=== PATIENT | male | born 1970 | race American Indian/Alaskan Native ===

== ENCOUNTER 2016-09-16 20:27 | Observation (INO) | payer MEDICAID ==
--- NOTE | 2016-09-16 21:06 | ED PDOC ---
HPI: Psych/Substance Abuse Time Seen by Provider: 09/16/16 21:02 Chief Complaint (Nursing): Substance Abuse Chief Complaint (Provider): substance abuse History Per: Patient, EMS Additional Complaint(s): 42-year-old male presents to emergency department via police and EMS. Patient was found publicly intoxicated. Bystanders contacted police due to witnessing bizarre behavior and patient was brought here. Patient admits to drinking alcohol and doing PCP. Upon arrival to ED patient is making inappropriate sexual gestures toward ED staff and is spitting in triage. Past Medical History Reviewed: Historical Data, Nursing Documentation, Vital Signs Vital Signs: Last Vital Signs Temp 100.6 F H 09/16/16 20:47 Pulse 140 H 09/16/16 20:47 Resp 20 09/16/16 20:47 BP 133/75 09/16/16 20:47 Pulse Ox 100 09/16/16 20:47 - Medical History PMH: Fractures (Mandible & foot), HTN, Seizures - Surgical History Surgical History: Appendectomy - Family History Family History: States: No Known Family Hx - Living Arrangements Living Arrangements: Other (unknown) - Social History Current smoker - smoking cessation education provided: Yes Alcohol: Social Drugs: Other (PCP) - Home Medications Home Medications: Ambulatory Orders Medication Instructions Recorded Lisinopril/Hydrochlorothiazide 1 tab PO DAILY 11/02/15 [Zestoretic 20-25 mg Tablet] - Allergies Allergies/Adverse Reactions: Allergies Allergy/AdvReac Type Severity Reaction Status Date / Time No Known Allergies Allergy Verified 02/13/16 12:33 Review of Systems ROS Statement: Except As Marked, All Systems Reviewed And Found Negative Psych: Positive for: Other (substance abuse) Physical Exam - Reviewed Nursing Documentation Reviewed: Yes Vital Signs Reviewed: Yes - Physical Exam Appears: Positive for: Well, Non-toxic, No Acute Distress Skin: Negative for: Rash Cardiovascular/Chest: Positive for: Regular Rate, Rhythm Respiratory: Positive for: Normal Breath Sounds Neurologic/Psych: Positive for: Alert, Oriented, Other (combative, agitated) - Laboratory Results Result Diagrams: 09/16/16 22:46 09/16/16 22:46 - ECG O2 Sat by Pulse Oximetry: 100 Pulse Ox Interpretation: Normal Medical Decision Making Medical Decision Makin45 year old male here for possible substance abuse and agitation Plan: Patient arrives acutely agitated, combative and intoxicated upon arrival. He was placed on one-to-one observation and placed in 4 point restraints for his safety and safety of ED staff. Admit to ED observation. CBC CMP BAL UDS EKG ED OBSERVATION Date of observation admission: 09/16/16 Time of observation admission: 20:50 - Observation admission statement Patient is being placed in observation because:: Agitation, substance abuse - Goals of Observation Goals of observation are:: Monitor patient will acutely intoxicated and agitated. Monitor vital signs and monitor for airway compromise, pending sobriety. - Progress Note Progress Note: 09/16/16 21:30 Patient started to calm down somewhat, reassurance will remove briefly however upon removal of her strengths patient was noted to become acutely agitated and started to threaten staff again. He was put back in 4 point restraints and medicated with 2 mg IM Ativan and 5 mg IM Haldol. 09/16/16 22:40 Patient is asleep, vital signs are stable, restraints were removed, he will continue to be monitored under one-to-one bedside observation. 09/16/16 23:46 Patient is asleep, arousable, will continue to monitor Disposition - Clinical Impression Clinical Impression: Substance abuse - Patient ED Disposition Is Patient to be Admitted: Transfer of Care Counseled Patient/Family Regarding: Diagnosis, Need For Followup - Disposition Disposition: Transfer of Care Disposition Time: 23:55 Condition: FAIR Patient Signed Over To: Diya Maxwell Handoff Comments: Case was signed out pending diagnostic testing results, sobriety and final disposition
[2016-09-16 22:49] LABS: BASO # 0.1 K/uL (0.0-0.2); BASO % 0.7 % (0.0-2.0); EOS % 0.4 % (0.0-4.0); HEMOGLOBIN 11.6 g/dL (12.0-18.0); LYMPH % 9.3 % (20.0-40.0); MEAN CELL VOLUME 95.8 fl (80.0-94.0); MEAN CORPUSCULAR HEMOGLOBIN 31.6 pg (27.0-31.0); MEAN PLATELET VOLUME 7.9 fl (7.2-11.7); MONO # 0.4 K/uL (0.0-0.8); MONO % 3.7 % (0.0-10.0); NEUT # 8.8 K/uL (1.8-7.0); NEUT % 85.9 % (50.0-75.0); PLATELET COUNT 247 K/uL (130-400); RBC 3.66 Mil/uL (4.40-5.90); RED CELL DISTRIBUTION WIDTH 13.5 % (11.5-14.5); WHITE BLOOD COUNT 10.2 K/uL (4.8-10.8)
[2016-09-16 23:07] LABS: ALB/GLOB RATIO 1.5 (1.0-2.1); ALBUMIN 4.7 g/dL (3.5-5.0); CALCIUM 9.7 mg/dL (8.4-10.2)
[2016-09-16 23:58] VITALS: RESP 16
[2016-09-17 00:07] LABS: LYMPHOCYTE 12 % (20-50); METAMYELOCYTE 1 % (0-0); MONOCYTE 1 % (0-10); MYELOCYTE 1 % (0-0); NEUTROPHIL 85 % (42-75); PLATELET ESTIMATE NORMAL (NORMAL); TOTAL CELLS COUNTED 100
--- NOTE | 2016-09-17 05:16 | ED PDOC ---
- Laboratory Results Result Diagrams: 09/16/16 22:46 09/16/16 22:46 - ECG O2 Sat by Pulse Oximetry: 100 - Progress ED Course And Treament: Case endorsed to creative services writer from Sandhya KRISHNA pending clinical sobriety 2:00 patient sleeping, no distress 4:00 Patient sleeping, no distress 5:30 patient awake, alert, oriented x3; ambulating steady gait. Stable for discharge Disposition - Clinical Impression Clinical Impression: Substance abuse - POA Present On Arrival: None - Disposition Disposition: Routine/Home Disposition Time: 05:30 Condition: STABLE
[2016-09-17 05:36] VITALS: BP 150/95; PULSE 78; TEMP 98.2
[2016-09-17 05:38] VITALS: O2SAT 100
--- NOTE | 2016-09-17 07:26 | CARD ---
APPROVED REPORT EKG Measurement Heart [id number] <Conclusion> Normal sinus rhythm Possible Left atrial enlargement Incomplete right bundle branch block Left ventricular hypertrophy Prolonged QT Abnormal ECG
== END 2016-09-17 05:30 | disposition home or self-care (01) ==
LOC: H.ER 20:27 → H.EROBSV 22:22
PROVIDERS: ADMIT Emergency Medicine; ATTEND Emergency Medicine
DX: F19.10 Other psychoactive substance abuse, uncomplicated (principal); F10.129 Alcohol abuse with intoxication, unspecified; Y90.5 Blood alcohol level of 100-119 mg/100 ml; Z78.1 Physical restraint status; F17.210 Nicotine dependence, cigarettes, uncomplicated; I10 Essential (primary) hypertension; R56.9 Unspecified convulsions

== ENCOUNTER 2016-12-23 08:54 | Emergency (ER) | payer MEDICAID ==
[2016-12-23 09:08] VITALS: RESP 20; TEMP 97.5; O2SAT 99
[2016-12-23 09:36] VITALS: PULSE 83
[2016-12-23 09:58] LABS: BASO # 0.1 K/uL (0.0-0.2); BASO % 1.3 % (0.0-2.0); EOS % 0.6 % (0.0-4.0); LYMPH # 1.4 K/uL (1.0-4.3); LYMPH % 26.5 % (20.0-40.0); MEAN CELL VOLUME 96.2 fl (80.0-94.0); MEAN CORPUSCULAR HEMOGLOBIN 32.8 pg (27.0-31.0); MEAN CORPUSCULAR HGB CONC 34.1 g/dL (33.0-37.0); MEAN PLATELET VOLUME 8.5 fl (7.2-11.7); MONO # 0.5 K/uL (0.0-0.8); MONO % 8.9 % (0.0-10.0); NEUT # 3.4 K/uL (1.8-7.0); NEUT % 62.7 % (50.0-75.0); NRBC % 0.2 % (0.0-0.0); RED CELL DISTRIBUTION WIDTH 14.6 % (11.5-14.5); WHITE BLOOD COUNT 5.4 K/uL (4.8-10.8)
[2016-12-23 10:04] LABS: ALB/GLOB RATIO 1.5 (1.0-2.1); ALCOHOL SERUM 113 mg/dl (0-10); ALKALINE PHOSPHATASE 73 U/L (38-126); ALT/SGPT 38 U/L (21-72); AST/SGOT 70 U/L (17-59); BILIRUBIN,TOTAL 0.4 mg/dl (0.2-1.3); BLOOD UREA NITROGEN 16 mg/dl (9-20); CALCIUM 9.2 mg/dL (8.4-10.2); CARBON DIOXIDE 26 mmol/L (22-30); CHLORIDE 106 mmol/L (98-107); GFR AFRICAN-AMERICAN > 60; GLUCOSE,RANDOM 89 mg/dL (75-110); POTASSIUM 3.9 MMOL/L (3.6-5.0); SODIUM 143 mmol/l (132-148); TOTAL PROTEIN 7.4 G/DL (6.3-8.2)
--- NOTE | 2016-12-23 10:48 | RAD ---
HISTORY: COMPARISON: 11/02/2015. TECHNIQUE: Chest PA and lateral FINDINGS: LINES AND TUBES: None. LUNG AND PLEURA: The lungs are well inflated and clear. HEART AND MEDIASTINUM: The heart is not enlarged. The hilar and mediastinal contours are within normal limits. SKELETAL STRUCTURES: The bony structures are within normal limits for the patient's age. VISUALIZED UPPER ABDOMEN: Normal. OTHER FINDINGS: None. IMPRESSION: No active pulmonary disease.
[2016-12-23 11:04] LABS: RBC URINE 4 /hpf (0-3); URINE BACTERIA RARE (<OCC); URINE BILIRUBIN NEGATIVE (NEGATIVE); URINE BLOOD NEGATIVE (NEGATIVE); URINE COLOR YELLOW (YELLOW); URINE GLUCOSE (UA) NEG (Normal); URINE KETONE TRACE mg/dL (NEGATIVE); URINE LEUKOCYTE ESTERASE MOD Leu/uL (Negative); URINE PROTEIN 100 mg/dL (NEGATIVE); WBC URINE 15 /hpf (0-5)
--- NOTE | 2016-12-23 11:36 | ED PDOC ---
HPI: General Adult Time Seen by Provider: 12/23/16 09:07 Chief Complaint (Nursing): Cough, Cold, Congestion Chief Complaint (Provider): weakness, dizzy History Per: Patient History/Exam Limitations: no limitations Onset/Duration Of Symptoms: Days (1) Current Symptoms Are (Timing): Still Present Severity: Mild Additional Complaint(s): 46yo male presents c/o feeling weak and dizzy, did not take his BP medicine last few days. Denies chest pain, SOB, orthopnea or syncope. Admits to frequent alcohol. Past Medical History Reviewed: Historical Data, Nursing Documentation, Vital Signs Vital Signs: Last Vital Signs Temp 97.5 F L 12/23/16 09:07 Pulse 83 12/23/16 12:30 Resp 20 12/23/16 09:07 BP 121/82 12/23/16 13:33 Pulse Ox 99 12/23/16 11:38 - Medical History PMH: Bronchitis, Fractures (Mandible & foot), HTN, Seizures - Surgical History Surgical History: Appendectomy - Family History Family History: States: Unknown Family Hx, Hypertension - Social History Current smoker - smoking cessation education provided: Yes Alcohol: > 2 Drinks/Day - Home Medications Home Medications: Ambulatory Orders Medication Instructions Recorded Lisinopril/Hydrochlorothiazide 1 tab PO DAILY 11/02/15 [Zestoretic 20-25 mg Tablet] Ciprofloxacin [Cipro] 500 mg PO BID #14 tab 12/23/16 amLODIPine [Norvasc] 10 mg PO DAILY #10 tab 12/23/16 - Allergies Allergies/Adverse Reactions: Allergies Allergy/AdvReac Type Severity Reaction Status Date / Time No Known Allergies Allergy Verified 12/23/16 09:14 Review of Systems ROS Statement: Except As Marked, All Systems Reviewed And Found Negative Constitutional: Positive for: Weakness, Malaise. Negative for: Fever, Chills Cardiovascular: Negative for: Chest Pain, Orthopnea Respiratory: Negative for: Cough, Shortness of Breath Gastrointestinal: Negative for: Nausea, Vomiting, Abdominal Pain Genitourinary Male: Negative for: Dysuria, Frequency Musculoskeletal: Negative for: Neck Pain, Shoulder Pain, Arm Pain Skin: Negative for: Rash, Lesions Neurological: Positive for: Dizziness. Negative for: Weakness, Numbness, Change in Speech, Confusion, Seizures, Headache Physical Exam - Reviewed Nursing Documentation Reviewed: Yes Vital Signs Reviewed: Yes - Physical Exam Appears: Positive for: Well, Non-toxic, No Acute Distress Head Exam: Positive for: ATRAUMATIC, NORMAL INSPECTION, NORMOCEPHALIC Skin: Positive for: Normal Color, Warm, DRY Eye Exam: Positive for: Normal appearance, EOMI, PERRL, Other (muddy sclera) ENT: Positive for: Normal ENT Inspection Neck: Positive for: Normal, Painless ROM Cardiovascular/Chest: Positive for: Regular Rate, Rhythm Respiratory: Positive for: CNT, Normal Breath Sounds Gastrointestinal/Abdominal: Positive for: Bowel Sounds, Soft. Negative for: Tenderness, Guarding Back: Positive for: Normal Inspection Extremity: Positive for: Normal ROM. Negative for: Calf Tenderness, Deformity, Swelling Neurologic/Psych: Positive for: Alert, Oriented. Negative for: Motor/Sensory Deficits - Laboratory Results Result Diagrams: 12/23/16 09:45 12/23/16 09:45 - ECG O2 Sat by Pulse Oximetry: 99 Medical Decision Making Medical Decision Making: BP elevated, states takes norvasc 10mg daily, dose given and bloodwork will be obtained, CXR, cardiac monitoring bloods reviewed, +elevated ETOH CXR no acute infiltrate BP improved in the ED Discussed curtailing etoh intake. Pt refused IV rocephin, will DC w Cipro and order UCx. Risks discussed. Urology referral recommended given UTI in nondiabetic patient circumscised. Did not want STD testing. Disposition - Clinical Impression Clinical Impression: UTI (urinary tract infection), Hypertension, Alcohol abuse - Patient ED Disposition Is Patient to be Admitted: No Counseled Patient/Family Regarding: Studies Performed, Diagnosis, Need For Followup, Rx Given - Disposition Referrals: [facility] [Outside] Disposition Time: 11:45 Condition: STABLE Additional Instructions: Avoid drinking. See your doctor for further testing and treatment. Return to ER for any worse or new symptoms. See urologist for evaluation of UTI in a male. Prescriptions: amLODIPine [Norvasc] 10 mg PO DAILY #10 tab Ciprofloxacin [Cipro] 500 mg PO BID #14 tab Instructions: Urinary Tract Infection in Men (ED), At-Risk Alcohol Use (ED), Hypertension (ED) Forms: [facility] ED School/Work Excuse
[2016-12-23 13:34] VITALS: BP 121/82
--- NOTE | 2016-12-23 13:51 | CARD ---
APPROVED REPORT EKG Measurement Heart [id number] RI [id number] [id number] <Conclusion> Normal sinus rhythm Possible Left atrial enlargement Left axis deviation Incomplete right bundle branch block Left ventricular hypertrophy Nonspecific T wave abnormality Prolonged QT Abnormal ECG
== END 2016-12-23 13:33 | disposition home or self-care (01) ==
LOC: H.ER 08:54
DX: N39.0 Urinary tract infection, site not specified (principal); I10 Essential (primary) hypertension; F10.10 Alcohol abuse, uncomplicated

== ENCOUNTER 2017-01-17 05:36 | Emergency (ER) | payer MEDICAID ==
[2017-01-17] MEDS ORDERED: Nitroglycerin 2% Ointment Foilpak UD TOP STA (06:07)
[2017-01-17 06:15] VITALS: BP 163/115; PULSE 115; RESP 18; TEMP 98.5; O2SAT 99
--- NOTE | 2017-01-18 21:19 | CARD ---
APPROVED REPORT EKG Measurement Heart [id number] <Conclusion> Sinus tachycardia Possible Left atrial enlargement Incomplete right bundle branch block Left ventricular hypertrophy Abnormal ECG
== END 2017-01-17 06:14 | disposition left against medical advice (07) ==
LOC: H.ER 05:36
DX: Z02.89 Encounter for other administrative examinations (principal)

== ENCOUNTER 2017-01-24 07:26 | Emergency (ER) | payer MEDICAID ==
[2017-01-24 07:30] VITALS: PULSE 99; RESP 16; TEMP 99.2; O2SAT 100
[2017-01-24 08:45] VITALS: BP 236/136
--- NOTE | 2017-01-24 09:00 | ED PDOC ---
HPI: General Adult Time Seen by Provider: 01/24/17 07:41 Chief Complaint (Nursing): Medical Clearance Chief Complaint (Provider): Medical Clearance History Per: Patient, Other ([place] [employer]) History/Exam Limitations: no limitations Additional Complaint(s): Dagoberto Calzada is a 46 year old male with a history of hypertension that was brought to the ED by EMS after he was complaining of chest pain and difficulty breathing while at the police station. Patient is currently under police custody. He is refusing EKG in ED. Past Medical History Reviewed: Historical Data, Nursing Documentation, Vital Signs Vital Signs: Last Vital Signs Temp 99.2 F 01/24/17 07:28 Pulse 99 H 01/24/17 07:28 Resp 16 01/24/17 07:28 BP 236/136 H 01/24/17 08:44 Pulse Ox 100 01/24/17 07:28 - Medical History PMH: Bronchitis, Fractures (Mandible & foot), HTN, Seizures - Surgical History Surgical History: Appendectomy - Family History Family History: States: Unknown Family Hx, Hypertension - Home Medications Home Medications: Ambulatory Orders Medication Instructions Recorded Lisinopril/Hydrochlorothiazide 1 tab PO DAILY 11/02/15 [Zestoretic 20-25 mg Tablet] Ciprofloxacin [Cipro] 500 mg PO BID #14 tab 12/23/16 amLODIPine [Norvasc] 10 mg PO DAILY #10 tab 12/23/16 - Allergies Allergies/Adverse Reactions: Allergies Allergy/AdvReac Type Severity Reaction Status Date / Time No Known Allergies Allergy Verified 01/17/17 05:57 Review of Systems Review Of Systems: ROS cannot be obtained secondary to pt's inabilty to answer questions. (Patient denies symptoms) Physical Exam - Reviewed Nursing Documentation Reviewed: Yes Vital Signs Reviewed: Yes - Physical Exam Appears: Positive for: Non-toxic, No Acute Distress Head Exam: Positive for: ATRAUMATIC, NORMOCEPHALIC Skin: Positive for: Normal Color, Warm Eye Exam: Positive for: Normal appearance, EOMI, PERRL Neurologic/Psych: Positive for: Alert (Awake and alert. Patient is speaking full sentences.), Oriented (x3), Mood/Affect (Patient is aggressive and cursing in ED.), Gait (Steady). Negative for: Motor/Sensory Deficits - ECG O2 Sat by Pulse Oximetry: 100 (RA) Pulse Ox Interpretation: Normal Medical Decision Making Medical Decision Making: Impression: Medical Clearance Plan: * Patient is aggressive and cursing in ED. Unable to medically clear patient because he is refusing any treatment or evaluation. Patient is to be discharged with [place] [employer]. Scribe Attestation: Documented by Gabrielle Ward, acting as a scribe for Cathryn Low MD. Provider Scribe Attestation: All medical record entries made by the Scribe were at my direction and personally dictated by me. I have reviewed the chart and agree that the record accurately reflects my personal performance of the history, physical exam, medical decision making, and the department course for this patient. I have also personally directed, reviewed, and agree with the discharge instructions and disposition. Disposition - Clinical Impression Clinical Impression: Elevated blood pressure reading - Disposition Referrals: [facility] [place] [Outside] Disposition: Discharged/Transfer to Law Enforcement Disposition Time: 08:50 Condition: UNKNOWN Additional Instructions: PATIENT NOT MEDICALLY CLEARED, REFUSING EVALUATION. Instructions: Hypertension (ED) Forms: [employer] (Russian)
== END 2017-01-24 08:59 | disposition home or self-care (01) ==
LOC: H.ER 07:26
DX: Z02.89 Encounter for other administrative examinations (principal); I10 Essential (primary) hypertension

== ENCOUNTER 2017-01-29 04:07 | Emergency (ER) | payer MEDICAID ==
[2017-01-29 04:19] VITALS: PULSE 97; RESP 18; TEMP 97.9; O2SAT 97
[2017-01-29] MEDS ORDERED: Sodium Chloride 0.9% 1,000 ML IV STA (04:34)
--- NOTE | 2017-01-29 04:36 | ED PDOC ---
HPI: Abdomen Time Seen by Provider: 01/29/17 04:21 Chief Complaint (Nursing): Abdominal Pain Chief Complaint (Provider): abdominal pain History Per: Patient History/Exam Limitations: no limitations Onset/Duration Of Symptoms: Days (2 weeks), Waxing/Waning Current Symptoms Are (Timing): Still Present Location Of Pain/Discomfort: Epigastric Quality Of Discomfort: Burning Additional History Per: Patient Additional Complaint(s): 46 y/o male presents with epigastric abdominal pain x 2 weeks. Denies fever, nausea/vomiting, chest pain, shortness of breath, palpitations, changes in bowel movements, urinary symptoms, recent travel, sick contacts. Patient appears intoxicated, admits to drinking daily. Past Medical History Reviewed: Historical Data, Nursing Documentation, Vital Signs Vital Signs: Last Vital Signs Temp 97.9 F 01/29/17 04:16 Pulse 97 H 01/29/17 04:16 Resp 18 01/29/17 04:16 BP 146/106 H 01/29/17 04:16 Pulse Ox 97 01/29/17 04:37 - Medical History PMH: Bronchitis, Fractures (Mandible & foot), HTN, Seizures - Surgical History Surgical History: Appendectomy - Family History Family History: States: Unknown Family Hx, Hypertension - Home Medications Home Medications: Ambulatory Orders Medication Instructions Recorded Lisinopril/Hydrochlorothiazide 1 tab PO DAILY 11/02/15 [Zestoretic 20-25 mg Tablet] Ciprofloxacin [Cipro] 500 mg PO BID #14 tab 12/23/16 amLODIPine [Norvasc] 10 mg PO DAILY #10 tab 12/23/16 Famotidine [Pepcid] 20 mg PO BID #20 tab 01/29/17 - Allergies Allergies/Adverse Reactions: Allergies Allergy/AdvReac Type Severity Reaction Status Date / Time No Known Allergies Allergy Verified 01/17/17 05:57 Review of Systems ROS Statement: Except As Marked, All Systems Reviewed And Found Negative Gastrointestinal: Positive for: Abdominal Pain Physical Exam - Reviewed Nursing Documentation Reviewed: Yes Vital Signs Reviewed: Yes - Physical Exam Appears: Positive for: Well, Non-toxic, No Acute Distress Head Exam: Positive for: ATRAUMATIC, NORMAL INSPECTION, NORMOCEPHALIC Skin: Positive for: Normal Color Eye Exam: Positive for: Normal appearance ENT: Positive for: Normal ENT Inspection Cardiovascular/Chest: Positive for: Regular Rate, Rhythm Respiratory: Positive for: Normal Breath Sounds Gastrointestinal/Abdominal: Positive for: Normal Exam Back: Positive for: Normal Inspection Extremity: Positive for: Normal ROM Neurologic/Psych: Positive for: Alert, Oriented - Laboratory Results Result Diagrams: 01/29/17 04:45 01/29/17 04:45 - ECG O2 Sat by Pulse Oximetry: 97 - Progress ED Course And Treament: labs, IV fluids, IV pepcid On re-eval, patient states he is feeling better; tolerated food. Patient educated on findings, discharged with rx pepcid. Advised follow up PMD 2-3 days. Return to ED for worsening/concerning symptoms. Disposition - Clinical Impression Clinical Impression: Abdominal pain, Alcohol use - Patient ED Disposition Is Patient to be Admitted: No Counseled Patient/Family Regarding: Studies Performed, Diagnosis, Need For Followup, Rx Given - Disposition Disposition: Routine/Home Disposition Time: 05:54 Condition: IMPROVED Prescriptions: Famotidine [Pepcid] 20 mg PO BID #20 tab Instructions: Abdominal Pain (ED) Forms: [employer] (Telugu)
[2017-01-29 05:39] LABS: BASO % 0.7 % (0.0-2.0); EOS % 0.9 % (0.0-4.0); HEMATOCRIT 34.9 % (35.0-51.0); LYMPH # 1.5 K/uL (1.0-4.3); LYMPH % 34.4 % (20.0-40.0); MEAN CELL VOLUME 97.9 fl (80.0-94.0); MEAN CORPUSCULAR HEMOGLOBIN 32.4 pg (27.0-31.0); MEAN CORPUSCULAR HGB CONC 33.1 g/dL (33.0-37.0); MEAN PLATELET VOLUME 8.7 fl (7.2-11.7); MONO # 0.5 K/uL (0.0-0.8); MONO % 10.9 % (0.0-10.0); NEUT # 2.2 K/uL (1.8-7.0); NEUT % 53.1 % (50.0-75.0); NRBC % 0.1 % (0.0-0.0); RED CELL DISTRIBUTION WIDTH 14.6 % (11.5-14.5); WHITE BLOOD COUNT 4.2 K/uL (4.8-10.8)
[2017-01-29 05:52] LABS: ALB/GLOB RATIO 1.5 (1.0-2.1); ALCOHOL SERUM 126 mg/dl (0-10); ALKALINE PHOSPHATASE 53 U/L (38-126); ALT/SGPT 54 U/L (21-72); AST/SGOT 89 U/L (17-59); BILIRUBIN,TOTAL 0.3 mg/dl (0.2-1.3); BLOOD UREA NITROGEN 25 mg/dl (9-20); CALCIUM 9.1 mg/dL (8.4-10.2); CARBON DIOXIDE 25 mmol/L (22-30); CHLORIDE 106 mmol/L (98-107); GFR AFRICAN-AMERICAN > 60; GLUCOSE,RANDOM 81 mg/dL (75-110); LIPASE 207 U/L (23-300); POTASSIUM 4.2 MMOL/L (3.6-5.0); SODIUM 141 mmol/l (132-148); TOTAL PROTEIN 7.5 G/DL (6.3-8.2)
[2017-01-29 06:05] VITALS: BP 139/70
== END 2017-01-29 06:08 | disposition home or self-care (01) ==
LOC: H.ER 04:07
DX: R10.13 Epigastric pain (principal); F10.10 Alcohol abuse, uncomplicated; I10 Essential (primary) hypertension; R56.9 Unspecified convulsions
CPT/HCPCS: 80053; 80320; 83690; 85025; 96374; 99283; J7040

== ENCOUNTER 2017-02-05 13:47 | Emergency (ER) | payer MEDICAID ==
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
[2017-02-05 15:41] VITALS: BP 150/88; PULSE 91; RESP 19; TEMP 99.5; O2SAT 99
== END 2017-02-05 15:42 | disposition home or self-care (01) ==
LOC: H.ER 13:47
DX: S83.91XA Sprain of unspecified site of right knee, initial encounter (principal); F17.200 Nicotine dependence, unspecified, uncomplicated; I10 Essential (primary) hypertension; V09.20XA Pedestrian injured in traffic accident involving unspecified motor vehicles, initial encounter; Y93.01 Activity, walking, marching and hiking

== ENCOUNTER 2017-02-13 04:32 | Emergency (ER) | payer MEDICAID ==
[2017-02-13 04:48] VITALS: BP 126/85; PULSE 91; RESP 16; TEMP 98.1; O2SAT 99
--- NOTE | 2017-02-13 05:28 | ED PDOC ---
HPI: Psych/Substance Abuse Time Seen by Provider: 02/13/17 04:51 Chief Complaint (Nursing): Dizziness/Lightheaded Chief Complaint (Provider): dizziness History/Exam Limitations: no limitations Current Symptoms Are (Timing): Better Severity: Mild Additional Complaint(s): Patient is a 46 yo AA male with PMHx alcohol abuse and bed seking behavior. Patient well known to provider and ED for multiple visits and is undomiciled. Past Medical History Reviewed: Historical Data, Nursing Documentation, Vital Signs Vital Signs: Last Vital Signs Temp 98.1 F 02/13/17 04:46 Pulse 91 H 02/13/17 04:46 Resp 16 02/13/17 04:46 BP 126/85 02/13/17 04:46 Pulse Ox 99 02/13/17 04:46 - Medical History PMH: Bronchitis, Fractures (Mandible & foot), HTN, Seizures - Surgical History Surgical History: Appendectomy - Family History Family History: States: Unknown Family Hx, Hypertension - Living Arrangements Living Arrangements: Alone - Social History Current smoker - smoking cessation education provided: No Ex-Smoker (has not smoked in the last 12 months): No Alcohol: None - Home Medications Home Medications: Ambulatory Orders Medication Instructions Recorded Lisinopril/Hydrochlorothiazide 1 tab PO DAILY 11/02/15 [Zestoretic 20-25 mg Tablet] Ciprofloxacin [Cipro] 500 mg PO BID #14 tab 12/23/16 amLODIPine [Norvasc] 10 mg PO DAILY #10 tab 12/23/16 Famotidine [Pepcid] 20 mg PO BID #20 tab 01/29/17 amLODIPine [Norvasc] 10 mg PO DAILY #10 tab 01/29/17 Naproxen [Naprosyn] 500 mg PO Q12H #20 tab 02/05/17 amLODIPine [Norvasc] 10 mg PO DAILY #30 tab 02/05/17 amLODIPine [Norvasc] 10 mg PO QAM #14 tab 02/13/17 - Allergies Allergies/Adverse Reactions: Allergies Allergy/AdvReac Type Severity Reaction Status Date / Time No Known Allergies Allergy Verified 02/13/17 04:45 Review of Systems ROS Statement: Except As Marked, All Systems Reviewed And Found Negative Neurological: Positive for: Dizziness Physical Exam - Reviewed Nursing Documentation Reviewed: Yes Vital Signs Reviewed: Yes - Physical Exam Appears: Positive for: Well, Non-toxic Head Exam: Positive for: ATRAUMATIC, NORMOCEPHALIC Skin: Positive for: Normal Color, Warm, Dry Eye Exam: Positive for: Normal appearance, EOMI, PERRL ENT: Positive for: Normal ENT Inspection Neck: Positive for: Normal, Painless ROM, Supple Cardiovascular/Chest: Positive for: Regular Rate, Rhythm Respiratory: Positive for: Normal Breath Sounds. Negative for: Crackles, Rales , Wheezing Gastrointestinal/Abdominal: Positive for: Normal Exam, Bowel Sounds, Soft. Negative for: Tenderness Back: Positive for: Normal Inspection Extremity: Positive for: Normal ROM. Negative for: Tenderness, Pedal Edema Neurologic/Psych: Positive for: Alert, Oriented. Negative for: Motor/Sensory Deficits - ECG O2 Sat by Pulse Oximetry: 99 Medical Decision Making Medical Decision Makin yo male with dizziness in setting of alcohol use BAL AC, and EKG BAL WNL Patient remains asymptomatic in ED and requesting multile juices of nursing staff. He is stable on dc; pt requesting Norvasc refill on discharge which was provided Disposition - Clinical Impression Clinical Impression: Dizziness - Disposition Referrals: Laura Jeff MD [Primary Care Provider] - Disposition: Routine/Home Disposition Time: 06:35 Condition: STABLE Prescriptions: amLODIPine [Norvasc] 10 mg PO QAM #14 tab Instructions: Dizziness (ED) Forms: [facility] (Hungarian)
--- NOTE | 2017-02-13 08:43 | CARD ---
APPROVED REPORT EKG Measurement Heart [id number] <Conclusion> Normal sinus rhythm Possible Left atrial enlargement Left axis deviation Left ventricular hypertrophy Prolonged QT Abnormal ECG
== END 2017-02-13 06:42 | disposition home or self-care (01) ==
LOC: H.ER 04:32
DX: R42 Dizziness and giddiness (principal); I10 Essential (primary) hypertension; Z87.891 Personal history of nicotine dependence

== ENCOUNTER 2017-02-20 12:55 | Emergency (ER) | payer MEDICAID ==
[2017-02-20 12:57] VITALS: BMI 22.2
[2017-02-20 12:58] VITALS: BP 184/120; PULSE 92; RESP 17; TEMP 98.2; O2SAT 99
--- NOTE | 2017-02-20 14:38 | ED PDOC ---
HPI: Psych/Substance Abuse Time Seen by Provider: 02/20/17 13:09 Chief Complaint (Nursing): Alcohol Ingestion Chief Complaint (Provider): Alcohol Ingestion ED Caveat: Intoxicated History Per: EMS History/Exam Limitations: intoxication Onset/Duration Of Symptoms: Mins (prior to arrival) Current Symptoms Are (Timing): Still Present Additional Complaint(s): 46 year old male who presents to the emergency department via EMS for an evaluation of public intoxication prior to arrival. Unable to obtain further medical history due to patient's current state of intoxication. Patient requested food upon arrival. PMD: none provided Past Medical History Reviewed: Historical Data, Nursing Documentation, Vital Signs Vital Signs: Last Vital Signs Temp 98.2 F 02/20/17 12:57 Pulse 92 H 02/20/17 12:57 Resp 17 02/20/17 12:57 BP 184/120 H 02/20/17 12:57 Pulse Ox 99 02/20/17 12:57 - Medical History PMH: Bronchitis, Fractures (Mandible & foot), HTN, Seizures - Surgical History Surgical History: Appendectomy - Family History Family History: States: Unknown Family Hx, Hypertension - Social History Current smoker - smoking cessation education provided: Yes Alcohol: Occasional Drugs: Other (PCP) - Home Medications Home Medications: Ambulatory Orders Medication Instructions Recorded Lisinopril/Hydrochlorothiazide 1 tab PO DAILY 11/02/15 [Zestoretic 20-25 mg Tablet] Ciprofloxacin [Cipro] 500 mg PO BID #14 tab 12/23/16 amLODIPine [Norvasc] 10 mg PO DAILY #10 tab 12/23/16 Famotidine [Pepcid] 20 mg PO BID #20 tab 01/29/17 amLODIPine [Norvasc] 10 mg PO DAILY #10 tab 01/29/17 Naproxen [Naprosyn] 500 mg PO Q12H #20 tab 02/05/17 amLODIPine [Norvasc] 10 mg PO DAILY #30 tab 02/05/17 amLODIPine [Norvasc] 10 mg PO QAM #14 tab 02/13/17 - Allergies Allergies/Adverse Reactions: Allergies Allergy/AdvReac Type Severity Reaction Status Date / Time No Known Allergies Allergy Verified 02/13/17 04:45 Review of Systems Review Of Systems: ROS cannot be obtained secondary to pt's inabilty to answer questions. (intoxication) Physical Exam - Reviewed Nursing Documentation Reviewed: Yes Vital Signs Reviewed: Yes - Physical Exam Appears: Positive for: Well, Non-toxic, No Acute Distress Head Exam: Positive for: ATRAUMATIC, NORMAL INSPECTION, NORMOCEPHALIC Cardiovascular/Chest: Positive for: Regular Rate, Rhythm, Chest Non Tender Respiratory: Positive for: Normal Breath Sounds. Negative for: Decreased Breath Sounds, Respiratory Distress Neurologic/Psych: Positive for: Mood/Affect (intoxicated; calm; cooperative), Gait (unsteady), Other (slurred speech; alcohol on breath). Negative for: Oriented - ECG O2 Sat by Pulse Oximetry: 99 (RA) Pulse Ox Interpretation: Normal Medical Decision Making Medical Decision Making: Initial Impression: ETOH intoxication Initial Plan: * Clinical sobriety 1550 - Pt with clear speech and steady gait after eating and sleeping in ER. Repeat BP 156/96. Pt left before papers printed. Scribe Attestation: Documented by Cary Way, acting as a scribe for April Murphy PA-C. Provider Scribe Attestation: All medical record entries made by the Scribe were at my direction and personally dictated by me. I have reviewed the chart and agree that the record accurately reflects my personal performance of the history, physical exam, medical decision making, and the department course for this patient. I have also personally directed, reviewed, and agree with the discharge instructions and disposition. Disposition - Clinical Impression Clinical Impression: Alcohol abuse - Patient ED Disposition Is Patient to be Admitted: No - Disposition Disposition: Routine/Home Disposition Time: 15:49 Condition: GOOD Forms: [employer] (Paraguayan)
== END 2017-02-20 15:49 | disposition home or self-care (01) ==
LOC: H.ER 12:55
DX: F10.129 Alcohol abuse with intoxication, unspecified (principal); F17.200 Nicotine dependence, unspecified, uncomplicated; I10 Essential (primary) hypertension

== ENCOUNTER 2017-02-27 03:11 | Emergency (ER) | payer MEDICAID ==
[2017-02-27 03:11] VITALS: BMI 22.2
[2017-02-27 03:57] VITALS: BP 138/79; PULSE 89; RESP 18; TEMP 98.9; O2SAT 100
--- NOTE | 2017-02-27 04:34 | ED PDOC ---
HPI: Abdomen Time Seen by Provider: 02/27/17 04:24 Chief Complaint (Nursing): Abdominal Pain Chief Complaint (Provider): Abdominal Pain History Per: Patient History/Exam Limitations: no limitations Onset/Duration Of Symptoms: Mins (prior to arrival) Current Symptoms Are (Timing): Still Present Additional Complaint(s): 46 year old male with previous medical history of alcohol abuse, who presents to the emergency department with a complaint of abdominal pain prior to arrival. Denied any diarrhea, nausea, vomiting, loose or hard stools. Patient seen snoring in exam room and needed to be physically shaken to be woken up. PMD: none provided Past Medical History Reviewed: Historical Data, Nursing Documentation, Vital Signs Vital Signs: Last Vital Signs Temp 98.9 F 02/27/17 03:29 Pulse 89 02/27/17 03:29 Resp 18 02/27/17 03:29 BP 138/79 02/27/17 03:29 Pulse Ox 100 02/27/17 04:38 - Medical History PMH: Bronchitis, Fractures (Mandible & foot), HTN, Seizures - Surgical History Surgical History: Appendectomy - Family History Family History: States: Unknown Family Hx, Hypertension - Home Medications Home Medications: Ambulatory Orders Medication Instructions Recorded Lisinopril/Hydrochlorothiazide 1 tab PO DAILY 11/02/15 [Zestoretic 20-25 mg Tablet] Ciprofloxacin [Cipro] 500 mg PO BID #14 tab 12/23/16 amLODIPine [Norvasc] 10 mg PO DAILY #10 tab 12/23/16 Famotidine [Pepcid] 20 mg PO BID #20 tab 01/29/17 amLODIPine [Norvasc] 10 mg PO DAILY #10 tab 01/29/17 Naproxen [Naprosyn] 500 mg PO Q12H #20 tab 02/05/17 amLODIPine [Norvasc] 10 mg PO DAILY #30 tab 02/05/17 amLODIPine [Norvasc] 10 mg PO QAM #14 tab 02/13/17 Dicyclomine [Dicyclomine HCl] 10 mg PO QID #30 cap 02/27/17 - Allergies Allergies/Adverse Reactions: Allergies Allergy/AdvReac Type Severity Reaction Status Date / Time No Known Allergies Allergy Verified 02/27/17 03:53 Review of Systems ROS Statement: Except As Marked, All Systems Reviewed And Found Negative Gastrointestinal: Positive for: Abdominal Pain. Negative for: Nausea, Vomiting , Diarrhea, Other (loose/hard stools) Physical Exam - Reviewed Nursing Documentation Reviewed: Yes Vital Signs Reviewed: Yes - Physical Exam Appears: Positive for: Well, Non-toxic, No Acute Distress Head Exam: Positive for: ATRAUMATIC, NORMAL INSPECTION, NORMOCEPHALIC Cardiovascular/Chest: Positive for: Regular Rate, Rhythm, Chest Non Tender Respiratory: Positive for: Normal Breath Sounds. Negative for: Decreased Breath Sounds, Respiratory Distress Gastrointestinal/Abdominal: Positive for: Normal Exam, Soft. Negative for: Tenderness Lymphatic: Positive for: Normal Exam Neurologic/Psych: Positive for: court assistant II-XII. Negative for: Alert (falling asleep during exam), Motor/Sensory Deficits, Mood/Affect, Gait, Aphasia - ECG O2 Sat by Pulse Oximetry: 100 (RA) Pulse Ox Interpretation: Normal Medical Decision Making Medical Decision Making: Initial Impression: Bed-seeking behavior Initial Plan: * Bentyl 10mg PO Scribe Attestation: Documented by Cary Way, acting as a scribe for Quan Benitez MD. Provider Scribe Attestation: All medical record entries made by the Scribe were at my direction and personally dictated by me. I have reviewed the chart and agree that the record accurately reflects my personal performance of the history, physical exam, medical decision making, and the department course for this patient. I have also personally directed, reviewed, and agree with the discharge instructions and disposition. Disposition - Clinical Impression Clinical Impression: Abdominal discomfort - Patient ED Disposition Is Patient to be Admitted: No - Disposition Referrals: Laura Jeff MD [Primary Care Provider] - Disposition: Routine/Home Disposition Time: 04:42 Condition: STABLE Prescriptions: Dicyclomine [Dicyclomine HCl] 10 mg PO QID #30 cap Instructions: Abdominal Pain (ED) Forms: [employer] (Ivorian)
== END 2017-02-27 05:19 | disposition home or self-care (01) ==
LOC: H.ER 03:11
DX: R10.9 Unspecified abdominal pain (principal); I10 Essential (primary) hypertension

== ENCOUNTER 2017-02-27 23:34 | Emergency (ER) | payer MEDICAID ==
[2017-02-27 23:34] VITALS: BMI 22.2
[2017-02-27 23:45] VITALS: BP 116/74; PULSE 92; RESP 18; TEMP 97.7; O2SAT 96
--- NOTE | 2017-02-28 00:05 | ED PDOC ---
HPI: Abdomen Time Seen by Provider: 02/27/17 23:48 Chief Complaint (Nursing): Abdominal Pain Chief Complaint (Provider): Abdominal Pain History Per: Patient History/Exam Limitations: no limitations Onset/Duration Of Symptoms: Other (x 6 months) Current Symptoms Are (Timing): Still Present Additional History Per: Prior Records Additional Complaint(s): Dagoberto is a 46 year old male who presents to the emergency department with chronic abdominal pain and epigastric nature associated with alcohol abuse. Patient denies fever, syncope and hematemesis. Patient states he was seen here for same complaint yesterday. PMD: No Family Provider Past Medical History Reviewed: Historical Data, Nursing Documentation, Vital Signs Vital Signs: Last Vital Signs Temp 97.7 F 02/27/17 23:42 Pulse 92 H 02/27/17 23:42 Resp 18 02/27/17 23:42 BP 116/74 02/27/17 23:42 Pulse Ox 96 02/28/17 01:39 - Medical History PMH: Bronchitis, Fractures (Mandible & foot), HTN, Seizures - Surgical History Surgical History: Appendectomy - Family History Family History: States: Unknown Family Hx, Hypertension - Home Medications Home Medications: Ambulatory Orders Medication Instructions Recorded Lisinopril/Hydrochlorothiazide 1 tab PO DAILY 11/02/15 [Zestoretic 20-25 mg Tablet] Ciprofloxacin [Cipro] 500 mg PO BID #14 tab 12/23/16 amLODIPine [Norvasc] 10 mg PO DAILY #10 tab 12/23/16 Famotidine [Pepcid] 20 mg PO BID #20 tab 01/29/17 amLODIPine [Norvasc] 10 mg PO DAILY #10 tab 01/29/17 Naproxen [Naprosyn] 500 mg PO Q12H #20 tab 02/05/17 amLODIPine [Norvasc] 10 mg PO DAILY #30 tab 02/05/17 amLODIPine [Norvasc] 10 mg PO QAM #14 tab 02/13/17 Dicyclomine [Dicyclomine HCl] 10 mg PO QID #30 cap 02/27/17 - Allergies Allergies/Adverse Reactions: Allergies Allergy/AdvReac Type Severity Reaction Status Date / Time No Known Allergies Allergy Verified 02/27/17 23:45 Review of Systems ROS Statement: Except As Marked, All Systems Reviewed And Found Negative Constitutional: Negative for: Fever Gastrointestinal: Positive for: Abdominal Pain. Negative for: Hematemesis Psych: Negative for: Other (Syncope) Physical Exam - Reviewed Nursing Documentation Reviewed: Yes Vital Signs Reviewed: Yes - Physical Exam ENT: Positive for: Other (EtOH on breath noted) Respiratory: Positive for: Normal Breath Sounds Gastrointestinal/Abdominal: Positive for: Soft. Negative for: Tenderness Neurologic/Psych: Positive for: Gait (Stable), Other (Speech is clear) - Laboratory Results Result Diagrams: 02/28/17 00:35 02/28/17 00:35 - ECG ECG: Positive for: Interpreted By Me ECG Rhythm: Positive for: Sinus Rhythm (at 93), ST/T Changes, Nonspecific Changes O2 Sat by Pulse Oximetry: 96 (RA) Pulse Ox Interpretation: Normal Medical Decision Making Medical Decision Making: Time: 23:53 Prior charts reviewed. No blood work obtained. Will obtain basic blood work and will be observed at ER. Plan: - Alcohol Serum - CMP - Lipase - Troponin I - CBC labs clinically unremarkable mod anemia, slightly worse that prior mild elev etoh slept 6+ hrs in ED without pain DC from ED Scribe Attestation: Documented by Romeo Hyman, acting as a scribe for Marquis Lockett III, DO Provider Scribe Attestation: All medical record entries made by the Scribe were at my direction and personally dictated by me. I have reviewed the chart and agree that the record accurately reflects my personal performance of the history, physical exam, medical decision making, and the department course for this patient. I have also personally directed, reviewed, and agree with the discharge instructions and disposition. Disposition - Clinical Impression Clinical Impression: Abdominal pain - Patient ED Disposition Is Patient to be Admitted: No Counseled Patient/Family Regarding: Studies Performed, Diagnosis, Need For Followup, Rx Given - Disposition Referrals: [facility] [Outside] Disposition: Routine/Home Disposition Time: 04:40 Condition: STABLE Instructions: Acute Abdominal Pain (ED) Forms: [facility] [facility] (Cayman Islander)
[2017-02-28 00:38] LABS: BASO # 0.1 K/uL (0.0-0.2); BASO % 0.9 % (0.0-2.0); EOS # 0.1 K/uL (0.0-0.7); EOS % 2.2 % (0.0-4.0); HEMATOCRIT 29.8 % (35.0-51.0); LYMPH # 1.9 K/uL (1.0-4.3); LYMPH % 34.4 % (20.0-40.0); MEAN CELL VOLUME 98.4 fl (80.0-94.0); MEAN CORPUSCULAR HGB CONC 32.5 g/dL (33.0-37.0); MEAN PLATELET VOLUME 7.5 fl (7.2-11.7); MONO # 0.4 K/uL (0.0-0.8); NEUT % 54.5 % (50.0-75.0); NRBC % 0.1 % (0.0-0.0); RED CELL DISTRIBUTION WIDTH 14.1 % (11.5-14.5); WHITE BLOOD COUNT 5.5 K/uL (4.8-10.8)
[2017-02-28 01:04] LABS: ALB/GLOB RATIO 1.5 (1.0-2.1); ALCOHOL SERUM 124 mg/dl (0-10); ALKALINE PHOSPHATASE 97 U/L (38-126); ALT/SGPT 23 U/L (21-72); AST/SGOT 26 U/L (17-59); BILIRUBIN,TOTAL < 0.1 mg/dl (0.2-1.3); BLOOD UREA NITROGEN 24 mg/dl (9-20); CALCIUM 8.7 mg/dL (8.4-10.2); CARBON DIOXIDE 22 mmol/L (22-30); CHLORIDE 109 mmol/L (98-107); GFR AFRICAN-AMERICAN 53; GLUCOSE,RANDOM 103 mg/dL (75-110); LIPASE 217 U/L (23-300); POTASSIUM 3.6 MMOL/L (3.6-5.0); SODIUM 146 mmol/l (132-148); TOTAL PROTEIN 6.5 G/DL (6.3-8.2)
== END 2017-02-28 06:30 | disposition home or self-care (01) ==
LOC: H.ER 23:34
DX: R10.9 Unspecified abdominal pain (principal); F10.129 Alcohol abuse with intoxication, unspecified; D64.9 Anemia, unspecified; I10 Essential (primary) hypertension

== ENCOUNTER 2017-03-01 00:23 | Emergency (ER) | payer MEDICAID ==
[2017-03-01 00:23] VITALS: BMI 22.2
[2017-03-01 00:35] VITALS: BP 149/103; PULSE 86; RESP 16; TEMP 98; O2SAT 98
--- NOTE | 2017-03-01 00:36 | ED PDOC ---
HPI: Abdomen Time Seen by Provider: 03/01/17 00:36 Chief Complaint (Nursing): Abdominal Pain Chief Complaint (Provider): abdominal pain History Per: Patient Additional Complaint(s): Patient states he has a history of chronic abdominal pain. He was seen last night in ED for same and labs obtained were all within normal limits. Patient denies any vomiting, diarrhea, fever or chills. Past Medical History Reviewed: Historical Data, Nursing Documentation, Vital Signs Vital Signs: Last Vital Signs Temp 98 F 03/01/17 00:32 Pulse 86 03/01/17 00:32 Resp 16 03/01/17 00:32 BP 149/103 H 03/01/17 00:32 Pulse Ox 98 03/01/17 04:31 - Medical History PMH: Fractures (Mandible & foot), HTN, Seizures - Surgical History Surgical History: Appendectomy - Family History Family History: States: Unknown Family Hx - Living Arrangements Living Arrangements: Other (undomiciled) - Social History Alcohol: > 2 Drinks/Day - Home Medications Home Medications: Ambulatory Orders Medication Instructions Recorded Lisinopril/Hydrochlorothiazide 1 tab PO DAILY 11/02/15 [Zestoretic 20-25 mg Tablet] Ciprofloxacin [Cipro] 500 mg PO BID #14 tab 12/23/16 amLODIPine [Norvasc] 10 mg PO DAILY #10 tab 12/23/16 Famotidine [Pepcid] 20 mg PO BID #20 tab 01/29/17 amLODIPine [Norvasc] 10 mg PO DAILY #10 tab 01/29/17 Naproxen [Naprosyn] 500 mg PO Q12H #20 tab 02/05/17 amLODIPine [Norvasc] 10 mg PO DAILY #30 tab 02/05/17 amLODIPine [Norvasc] 10 mg PO QAM #14 tab 02/13/17 Dicyclomine [Dicyclomine HCl] 10 mg PO QID #30 cap 02/27/17 - Allergies Allergies/Adverse Reactions: Allergies Allergy/AdvReac Type Severity Reaction Status Date / Time No Known Allergies Allergy Verified 02/27/17 23:45 Review of Systems ROS Statement: Except As Marked, All Systems Reviewed And Found Negative Constitutional: Negative for: Fever, Chills Cardiovascular: Negative for: Chest Pain Respiratory: Negative for: Cough Gastrointestinal: Positive for: Abdominal Pain (chronic). Negative for: Nausea , Vomiting, Diarrhea, Constipation Genitourinary Male: Negative for: Dysuria Physical Exam - Reviewed Nursing Documentation Reviewed: Yes Vital Signs Reviewed: Yes - Physical Exam Appears: Positive for: Well, Non-toxic, No Acute Distress Skin: Negative for: Rash Eye Exam: Positive for: Normal appearance Cardiovascular/Chest: Positive for: Regular Rate, Rhythm Respiratory: Positive for: Normal Breath Sounds Gastrointestinal/Abdominal: Positive for: Soft. Negative for: Tenderness, Distended, Guarding, Rebound Neurologic/Psych: Positive for: Alert, Oriented - ECG O2 Sat by Pulse Oximetry: 98 Pulse Ox Interpretation: Normal Medical Decision Making Medical Decision Makin46 year old with chronic abdominal pain Abdominal exam is benign. Patient observed in ED for several hours, his condition has remained stable throughout his stay. 5:00 am: patient is awake and alert with steady gait, he is stable for discharge. Disposition - Clinical Impression Clinical Impression: Chronic abdominal pain - Patient ED Disposition Is Patient to be Admitted: No - Disposition Referrals: [facility] [Outside] Disposition: Routine/Home Disposition Time: 04:55 Condition: STABLE Instructions: Abdominal Pain (ED) Forms: [facility] (Belarusian)
== END 2017-03-01 05:00 | disposition home or self-care (01) ==
LOC: H.ER 00:23
DX: G89.29 Other chronic pain (principal); I10 Essential (primary) hypertension

== ENCOUNTER 2017-03-05 17:09 | Emergency (ER) | payer MEDICAID ==
[2017-03-05 17:10] VITALS: BMI 22.2
[2017-03-05 17:18] VITALS: BP 141/89; PULSE 99; RESP 16; TEMP 98.1; O2SAT 100
--- NOTE | 2017-03-05 17:38 | ED PDOC ---
HPI: General Adult Time Seen by Provider: 03/05/17 17:32 Chief Complaint (Nursing): Flu-like Symptoms Chief Complaint (Provider): Chronic cough History Per: Patient History/Exam Limitations: no limitations Onset/Duration Of Symptoms: Other (Chronic) Current Symptoms Are (Timing): Still Present Additional Complaint(s): Dagoberto Calzada is a 46 year old undomiciled male who presents to the ED complaining of a chronic cough. Patient has recently been seen at this ED multiple times for same. PMD: [facility] Past Medical History Reviewed: Historical Data, Nursing Documentation, Vital Signs Vital Signs: Last Vital Signs Temp 98.1 F 03/05/17 17:14 Pulse 99 H 03/05/17 17:14 Resp 16 03/05/17 17:14 BP 141/89 03/05/17 17:14 Pulse Ox 100 03/05/17 18:14 - Medical History PMH: HTN - Surgical History Surgical History: Appendectomy - Family History Family History: States: Hypertension - Living Arrangements Living Arrangements: Other (undomiciled) - Social History Current smoker - smoking cessation education provided: Yes Alcohol: None Drugs: Denies - Home Medications Home Medications: Ambulatory Orders Medication Instructions Recorded Lisinopril/Hydrochlorothiazide 1 tab PO DAILY 11/02/15 [Zestoretic 20-25 mg Tablet] Ciprofloxacin [Cipro] 500 mg PO BID #14 tab 12/23/16 amLODIPine [Norvasc] 10 mg PO DAILY #10 tab 12/23/16 Famotidine [Pepcid] 20 mg PO BID #20 tab 01/29/17 amLODIPine [Norvasc] 10 mg PO DAILY #10 tab 01/29/17 Naproxen [Naprosyn] 500 mg PO Q12H #20 tab 02/05/17 amLODIPine [Norvasc] 10 mg PO DAILY #30 tab 02/05/17 amLODIPine [Norvasc] 10 mg PO QAM #14 tab 02/13/17 Dicyclomine [Dicyclomine HCl] 10 mg PO QID #30 cap 02/27/17 Albuterol HFA [Ventolin HFA 90 1 puff IH ASDIR #1 unit 03/05/17 mcg/actuation (8 g)] Benzonatate 200 mg PO TID PRN #20 capsule 03/05/17 - Allergies Allergies/Adverse Reactions: Allergies Allergy/AdvReac Type Severity Reaction Status Date / Time No Known Allergies Allergy Verified 02/27/17 23:45 Review of Systems ROS Statement: Except As Marked, All Systems Reviewed And Found Negative Constitutional: Negative for: Fever Respiratory: Positive for: Cough (chronic) Physical Exam - Reviewed Nursing Documentation Reviewed: Yes Vital Signs Reviewed: Yes - Physical Exam Appears: Positive for: Non-toxic, No Acute Distress Head Exam: Positive for: ATRAUMATIC Skin: Positive for: Normal Color, Warm. Negative for: Rash Eye Exam: Positive for: Normal appearance Cardiovascular/Chest: Positive for: Regular Rate, Rhythm Respiratory: Positive for: Normal Breath Sounds. Negative for: Wheezing, Respiratory Distress Extremity: Positive for: Normal ROM Neurologic/Psych: Positive for: Alert, Oriented (x3), Gait (steady) - ECG O2 Sat by Pulse Oximetry: 100 (RA) Pulse Ox Interpretation: Normal - Other Rad CXR X-Ray: Interpreted by Me, Viewed By Me X-Ray Interpretation: no acute infiltrate Medical Decision Making Medical Decision Making: Time: 17:40 Initial Impression: 46 year old male with chronic cough No respiratory distress noted. Patient fell asleep as soon as he arrived to ED room. Plan: --Chest X-ray Rx ventolin and tessalon perles given. Patient was referred to clinic for follow up. Scribe Attestation: Documented by Sigifredo Pepe, acting as a scribe for Svitlana Arthur PA-C Provider Scribe Attestation: All medical record entries made by the Scribe were at my direction and personally dictated by me. I have reviewed the chart and agree that the record accurately reflects my personal performance of the history, physical exam, medical decision making, and the department course for this patient. I have also personally directed, reviewed, and agree with the discharge instructions and disposition. Disposition - Clinical Impression Clinical Impression: Chronic cough - Patient ED Disposition Is Patient to be Admitted: No Counseled Patient/Family Regarding: Studies Performed, Diagnosis, Need For Followup, Rx Given, Smoking Cessation - Disposition Referrals: [facility] [Outside] Disposition: Routine/Home Disposition Time: 18:10 Condition: STABLE Additional Instructions: Take rx meds as directed. Stop smoking. Follow up with clinic. Prescriptions: Albuterol HFA [Ventolin HFA 90 mcg/actuation (8 g)] 1 puff IH ASDIR #1 unit Benzonatate 200 mg PO TID PRN #20 capsule PRN Reason: Cough Instructions: How to Stop Smoking (ED), Chronic Cough (ED) Forms: [employer] (Tuvaluan)
--- NOTE | 2017-03-05 18:27 | RAD ---
HISTORY: cough COMPARISON: Chest x-ray performed 12/23/16 TECHNIQUE: Chest PA and lateral FINDINGS: LUNGS: No focal consolidation. Please note that chest x-ray has limited sensitivity for the detection of pulmonary masses. PLEURA: No significant pleural effusion identified. No definite pneumothorax . CARDIOVASCULAR: The cardiomediastinal silhouette appears within normal limits of size. OSSEOUS STRUCTURES: No acute osseous abnormality identified. VISUALIZED UPPER ABDOMEN: Unremarkable. OTHER FINDINGS: None. IMPRESSION: No focal consolidation, significant pleural effusion, or definite pneumothorax identified.
== END 2017-03-05 19:27 | disposition home or self-care (01) ==
LOC: H.ER 17:09
DX: R05 Cough (principal); F17.200 Nicotine dependence, unspecified, uncomplicated; I10 Essential (primary) hypertension

== ENCOUNTER 2017-03-06 23:34 | Emergency (ER) | payer MEDICAID ==
[2017-03-06 23:34] VITALS: BMI 22.2
[2017-03-06 23:45] VITALS: BP 146/88; PULSE 89; RESP 16; TEMP 98; O2SAT 97
--- NOTE | 2017-03-07 00:25 | ED PDOC ---
Lower Extremity Pain/Injury Time Seen by Provider: 03/06/17 23:56 Chief Complaint (Nursing): Lower Extremity Problem/Injury Chief Complaint (Provider): right foot pain History Per: Patient History/Exam Limitations: no limitations Onset/Duration Of Symptoms: Hrs Current Symptoms Are (Timing): Still Present Additional History Per: Patient Additional Complaint(s): 46 y/o male brought in by EMS for evaluation of right foot pain status-post slip and fall. Patient states he was drinking tonight and slipped on ice and landed on right foot. DEnies numbness/weakness right lower extremity, limitation of movement. Past Medical History Reviewed: Historical Data, Nursing Documentation, Vital Signs Vital Signs: Last Vital Signs Temp 98.0 F 03/06/17 23:43 Pulse 89 03/06/17 23:43 Resp 16 03/06/17 23:43 BP 146/88 03/06/17 23:43 Pulse Ox 97 03/06/17 23:43 - Medical History PMH: Bronchitis, Fractures (Mandible & foot), HTN, Seizures - Surgical History Surgical History: Appendectomy - Family History Family History: States: Unknown Family Hx, Hypertension - Home Medications Home Medications: Ambulatory Orders Medication Instructions Recorded Lisinopril/Hydrochlorothiazide 1 tab PO DAILY 11/02/15 [Zestoretic 20-25 mg Tablet] Ciprofloxacin [Cipro] 500 mg PO BID #14 tab 12/23/16 amLODIPine [Norvasc] 10 mg PO DAILY #10 tab 12/23/16 Famotidine [Pepcid] 20 mg PO BID #20 tab 01/29/17 amLODIPine [Norvasc] 10 mg PO DAILY #10 tab 01/29/17 Naproxen [Naprosyn] 500 mg PO Q12H #20 tab 02/05/17 amLODIPine [Norvasc] 10 mg PO DAILY #30 tab 02/05/17 amLODIPine [Norvasc] 10 mg PO QAM #14 tab 02/13/17 Dicyclomine [Dicyclomine HCl] 10 mg PO QID #30 cap 02/27/17 Albuterol HFA [Ventolin HFA 90 1 puff IH ASDIR #1 unit 03/05/17 mcg/actuation (8 g)] Benzonatate 200 mg PO TID PRN #20 capsule 03/05/17 Naproxen [Naprosyn] 500 mg PO Q12 PRN #20 tablet 03/07/17 - Allergies Allergies/Adverse Reactions: Allergies Allergy/AdvReac Type Severity Reaction Status Date / Time No Known Allergies Allergy Verified 02/27/17 23:45 Review of Systems ROS Statement: Except As Marked, All Systems Reviewed And Found Negative Musculoskeletal: Positive for: Foot Pain (right foot, right ankle) Physical Exam - Reviewed Nursing Documentation Reviewed: Yes Vital Signs Reviewed: Yes - Physical Exam Appears: Positive for: Well, Non-toxic, No Acute Distress (sleeping) Head Exam: Positive for: ATRAUMATIC, NORMAL INSPECTION, NORMOCEPHALIC Pulses-Dorsalis Pedis (L): 2+ Pulses-Dorsalis Pedis (R): 2+ Pulses-Post. Tibialis (L): 2+ Pulses-Post. Tibialis (R): 2+ Extremity: Positive for: Normal ROM, Swelling (right proximal lateral foot, + tender to touch over diffuse dorsal foot. No deformity. NV intact) Neurologic/Psych: Positive for: Alert, Oriented. Negative for: Motor/Sensory Deficits - ECG O2 Sat by Pulse Oximetry: 97 - Other Rad xray right ankle X-Ray: Viewed By Nj X-Ray Interpretation: no acute findings xray right foot X-Ray: Viewed By Nj X-Ray Interpretation: no acute findings - Progress ED Course And Treament: xray's, ibuprofen Patient educated on findings, right foot wrapped in KIRK, air cast applied. Advised RICE. Rx naproxen given. Follow up podiatry Return precautions given. Disposition - Clinical Impression Clinical Impression: Ankle sprain, Foot sprain - Patient ED Disposition Is Patient to be Admitted: No Counseled Patient/Family Regarding: Studies Performed, Diagnosis, Need For Followup, Rx Given - Disposition Referrals: Podiatry Clinic [Outside] Disposition: Routine/Home Disposition Time: 01:27 Condition: IMPROVED Prescriptions: Naproxen [Naprosyn] 500 mg PO Q12 PRN #20 tablet PRN Reason: Pain, Moderate (4-7) Instructions: Ankle Sprain (ED), Foot Sprain (ED), RICE Therapy (ED) Forms: [employer] (Bulgarian)
--- NOTE | 2017-03-07 16:03 | RAD ---
PROCEDURE: Right Foot Radiographs. HISTORY: slip and fall COMPARISON: None. FINDINGS: BONES: Normal. No fracture. JOINTS: Hallux valgus deformity. Otherwise unremarkable. SOFT TISSUES: Normal. OTHER FINDINGS: None. IMPRESSION: No acute fracture. Hallux valgus.
--- NOTE | 2017-03-07 16:06 | RAD ---
PROCEDURE: Right Ankle Radiographs. HISTORY: slip and fall COMPARISON: None FINDINGS: BONES: Normal. No fracture. JOINTS: Normal. No osteoarthritis. Ankle mortise maintained. Talar dome intact SOFT TISSUES: Normal. OTHER FINDINGS: None. IMPRESSION: Normal right ankle radiographs.
== END 2017-03-07 03:39 | disposition home or self-care (01) ==
LOC: H.ER 23:34
DX: S93.401A Sprain of unspecified ligament of right ankle, initial encounter (principal); W01.0XXA Fall on same level from slipping, tripping and stumbling without subsequent striking against object, initial encounter; Y92.89 Other specified places as the place of occurrence of the external cause; I10 Essential (primary) hypertension

== ENCOUNTER 2017-03-23 14:58 | Emergency (ER) | payer MEDICAID ==
[2017-03-23 14:58] VITALS: BMI 22.2
[2017-03-23 15:03] VITALS: TEMP 98
--- NOTE | 2017-03-23 15:15 | ED PDOC ---
HPI: Psych/Substance Abuse Time Seen by Provider: 03/23/17 15:04 Chief Complaint (Nursing): Substance Abuse Past Medical History Vital Signs: Last Vital Signs Temp 98 F 03/23/17 15:01 Pulse 78 03/23/17 15:01 Resp 16 03/23/17 15:01 BP 156/70 H 03/23/17 15:01 Pulse Ox 98 03/23/17 15:01 - Medical History PMH: Bronchitis, Fractures (Mandible & foot), HTN, Seizures - Surgical History Surgical History: Appendectomy - Family History Family History: States: Unknown Family Hx, Hypertension - Home Medications Home Medications: Ambulatory Orders Medication Instructions Recorded Lisinopril/Hydrochlorothiazide 1 tab PO DAILY 11/02/15 [Zestoretic 20-25 mg Tablet] Ciprofloxacin [Cipro] 500 mg PO BID #14 tab 12/23/16 amLODIPine [Norvasc] 10 mg PO DAILY #10 tab 12/23/16 Famotidine [Pepcid] 20 mg PO BID #20 tab 01/29/17 amLODIPine [Norvasc] 10 mg PO DAILY #10 tab 01/29/17 Naproxen [Naprosyn] 500 mg PO Q12H #20 tab 02/05/17 amLODIPine [Norvasc] 10 mg PO DAILY #30 tab 02/05/17 amLODIPine [Norvasc] 10 mg PO QAM #14 tab 02/13/17 Dicyclomine [Dicyclomine HCl] 10 mg PO QID #30 cap 02/27/17 Albuterol HFA [Ventolin HFA 90 1 puff IH ASDIR #1 unit 03/05/17 mcg/actuation (8 g)] Benzonatate 200 mg PO TID PRN #20 capsule 03/05/17 Naproxen [Naprosyn] 500 mg PO Q12 PRN #20 tablet 03/07/17 - Allergies Allergies/Adverse Reactions: Allergies Allergy/AdvReac Type Severity Reaction Status Date / Time No Known Allergies Allergy Verified 03/23/17 15:00 - ECG O2 Sat by Pulse Oximetry: 98 Disposition - Clinical Impression Clinical Impression: Hypertension - Patient ED Disposition Is Patient to be Admitted: No - Disposition Disposition: Against Medical Advice Disposition Time: 15:14
[2017-03-23 15:16] VITALS: BP 197/159; PULSE 116; RESP 18; O2SAT 97
== END 2017-03-23 15:21 | disposition left against medical advice (07) ==
LOC: H.ER 14:58
DX: F19.10 Other psychoactive substance abuse, uncomplicated (principal)

== ENCOUNTER 2017-04-02 01:29 | Emergency (ER) | payer MEDICAID ==
[2017-04-02 01:30] VITALS: BMI 22.2
[2017-04-02 01:43] VITALS: O2SAT 100
--- NOTE | 2017-04-02 02:48 | ED PDOC ---
HPI: Hypertension/Hypotension Time Seen by Provider: 04/02/17 01:47 Chief Complaint (Nursing): High Blood Pressure Chief Complaint (Provider): Chest Pain History Per: Patient History/Exam Limitations: no limitations Onset/Duration Of Symptoms: Intermittent Episodes (for several months) Current Symptoms Are (Timing): Still Present Additional Complaint(s): 46 y/o male with a history of hypertension, presents to the ED complaining of chronic intermittent chest pain, onset of several months. Patient reports that the pain arises only when he eats and he describes the pain as a burning sensation in the lower and mid chest. Symptoms are currently resolved because he ate earlier. He denies any dyspnea, dizziness, syncope, diarrhea, abdominal pain, or vomiting. Past Medical History Reviewed: Historical Data, Nursing Documentation, Vital Signs Vital Signs: Last Vital Signs Temp 98.6 F 04/02/17 01:41 Pulse 94 H 04/02/17 01:41 Resp 17 04/02/17 01:41 BP 151/115 H 04/02/17 01:41 Pulse Ox 100 04/02/17 01:41 - Medical History PMH: Bronchitis, Fractures (Mandible & foot), HTN, Seizures - Surgical History Surgical History: Appendectomy - Family History Family History: States: Hypertension - Social History Current smoker - smoking cessation education provided: Yes (regular) Alcohol: Occasional Drugs: Other (PCP) - Home Medications Home Medications: Ambulatory Orders Medication Instructions Recorded Lisinopril/Hydrochlorothiazide 1 tab PO DAILY 11/02/15 [Zestoretic 20-25 mg Tablet] Ciprofloxacin [Cipro] 500 mg PO BID #14 tab 12/23/16 amLODIPine [Norvasc] 10 mg PO DAILY #10 tab 12/23/16 amLODIPine [Norvasc] 10 mg PO DAILY #10 tab 01/29/17 Naproxen [Naprosyn] 500 mg PO Q12H #20 tab 02/05/17 amLODIPine [Norvasc] 10 mg PO DAILY #30 tab 02/05/17 amLODIPine [Norvasc] 10 mg PO QAM #14 tab 02/13/17 Dicyclomine [Dicyclomine HCl] 10 mg PO QID #30 cap 02/27/17 Albuterol HFA [Ventolin HFA 90 1 puff IH ASDIR #1 unit 03/05/17 mcg/actuation (8 g)] Benzonatate 200 mg PO TID PRN #20 capsule 03/05/17 Naproxen [Naprosyn] 500 mg PO Q12 PRN #20 tablet 03/07/17 Famotidine [Pepcid] 20 mg PO DAILY #14 tab 04/02/17 - Allergies Allergies/Adverse Reactions: Allergies Allergy/AdvReac Type Severity Reaction Status Date / Time No Known Allergies Allergy Verified 03/23/17 15:00 Review of Systems ROS Statement: Except As Marked, All Systems Reviewed And Found Negative Cardiovascular: Positive for: Chest Pain Respiratory: Negative for: Shortness of Breath Gastrointestinal: Negative for: Nausea, Vomiting, Abdominal Pain, Diarrhea Neurological: Negative for: Dizziness, Other (syncope) Physical Exam - Reviewed Nursing Documentation Reviewed: Yes Vital Signs Reviewed: Yes - Physical Exam Appears: Positive for: Non-toxic, No Acute Distress. Negative for: Well ( disheveled; bad hygiene) Head Exam: Positive for: ATRAUMATIC, NORMAL INSPECTION Skin: Positive for: Normal Color, Warm Eye Exam: Positive for: Normal appearance, EOMI, PERRL Neck: Positive for: Normal, Painless ROM, Supple Cardiovascular/Chest: Positive for: Regular Rate, Rhythm. Negative for: Murmur Respiratory: Positive for: Normal Breath Sounds. Negative for: Respiratory Distress Gastrointestinal/Abdominal: Positive for: Normal Exam, Soft. Negative for: Tenderness Back: Positive for: Normal Inspection Extremity: Positive for: Normal ROM. Negative for: Pedal Edema, Deformity Neurologic/Psych: Positive for: Alert, Oriented. Negative for: Motor/Sensory Deficits - Laboratory Results Result Diagrams: 04/02/17 03:07 04/02/17 03:07 - ECG O2 Sat by Pulse Oximetry: 100 (RA) Pulse Ox Interpretation: Normal Medical Decision Making Medical Decision Making: Time: --02:40 Impression: --chronic chest pain Differential: --GERD, Gastritis, rule out ACS Plan: --ECG --Labs --Troponin I --monitor technician Reassess -- Scribe Attestation: Documented by Chad Mcgowan acting as a scribe for Nancy Husain MD. Disposition - Clinical Impression Clinical Impression: Chest pain - Patient ED Disposition Is Patient to be Admitted: No Doctor Will See Patient In The: Office Counseled Patient/Family Regarding: Studies Performed, Diagnosis, Need For Followup - Disposition Referrals: [facility] [Outside] Disposition: Routine/Home Disposition Time: 04:28 Condition: GOOD Additional Instructions: Follow up with your PCP in 2-3 days. Prescriptions: Famotidine [Pepcid] 20 mg PO DAILY #14 tab Instructions: Gastroesophageal Reflux Disease (ED)
[2017-04-02 03:17] LABS: BASO % 0.5 % (0.0-2.0); EOS # 0.1 K/uL (0.0-0.7); EOS % 1.9 % (0.0-4.0); HEMOGLOBIN 11.6 g/dL (12.0-18.0); LYMPH % 32.4 % (20.0-40.0); MEAN CELL VOLUME 97.5 fl (80.0-94.0); MEAN CORPUSCULAR HGB CONC 33.9 g/dL (33.0-37.0); MEAN PLATELET VOLUME 7.9 fl (7.2-11.7); MONO # 0.8 K/uL (0.0-0.8); MONO % 12.5 % (0.0-10.0); NEUT # 3.2 K/uL (1.8-7.0); NEUT % 52.7 % (50.0-75.0); NRBC % 0.1 % (0.0-0.0); RBC 3.51 Mil/uL (4.40-5.90); RED CELL DISTRIBUTION WIDTH 13.1 % (11.5-14.5); WHITE BLOOD COUNT 6.1 K/uL (4.8-10.8)
[2017-04-02 03:22] LABS: BLOOD UREA NITROGEN 22 mg/dl (9-20); CALCIUM 9.3 mg/dL (8.4-10.2); GFR AFRICAN-AMERICAN > 60; GFR NON-AFRICAN AMERICAN 55
[2017-04-02 03:59] VITALS: BP 127/102; PULSE 96; RESP 16; TEMP 98.8
--- NOTE | 2017-04-03 18:30 | CARD ---
APPROVED REPORT EKG Measurement Heart [id number] <Conclusion> Normal sinus rhythm Possible Left atrial enlargement Left ventricular hypertrophy Nonspecific T wave abnormality Prolonged QT Abnormal ECG
== END 2017-04-02 05:19 | disposition home or self-care (01) ==
LOC: H.ER 01:29
DX: R07.9 Chest pain, unspecified (principal); G89.29 Other chronic pain; I10 Essential (primary) hypertension; F17.200 Nicotine dependence, unspecified, uncomplicated

== ENCOUNTER 2017-04-07 21:51 | Emergency (ER) | payer MEDICAID ==
[2017-04-07 21:51] VITALS: BMI 22.2
[2017-04-07 22:36] VITALS: BP 141/98; PULSE 98; RESP 16; TEMP 98.6; O2SAT 100
--- NOTE | 2017-04-08 03:53 | ED PDOC ---
Lower Extremity Pain/Injury Chief Complaint (Nursing): Lower Extremity Problem/Injury Chief Complaint (Provider): foot blisters History Per: Patient History/Exam Limitations: no limitations Onset/Duration Of Symptoms: Days (10) Current Symptoms Are (Timing): Still Present Additional History Per: Patient Additional Complaint(s): 46 y/o male presents with blisters/skin peeling to bottoms of feet x 10 days. Patient states symptoms began after using brand new water-resistant heavy boots. Denies fever, numbness/weakness lower extremities, burning/pain to bottom of foot. Past Medical History Reviewed: Historical Data, Nursing Documentation, Vital Signs Vital Signs: Last Vital Signs Temp 98.6 F 04/07/17 22:33 Pulse 98 H 04/07/17 22:33 Resp 16 04/07/17 22:33 BP 141/98 H 04/07/17 22:33 Pulse Ox 100 04/07/17 22:33 - Medical History PMH: Bronchitis, Fractures (Mandible & foot), HTN, Seizures - Surgical History Surgical History: Appendectomy - Family History Family History: States: Unknown Family Hx, Hypertension - Home Medications Home Medications: Ambulatory Orders Medication Instructions Recorded Lisinopril/Hydrochlorothiazide 1 tab PO DAILY 11/02/15 [Zestoretic 20-25 mg Tablet] Ciprofloxacin [Cipro] 500 mg PO BID #14 tab 12/23/16 amLODIPine [Norvasc] 10 mg PO DAILY #10 tab 12/23/16 amLODIPine [Norvasc] 10 mg PO DAILY #10 tab 01/29/17 Naproxen [Naprosyn] 500 mg PO Q12H #20 tab 02/05/17 amLODIPine [Norvasc] 10 mg PO DAILY #30 tab 02/05/17 amLODIPine [Norvasc] 10 mg PO QAM #14 tab 02/13/17 Dicyclomine [Dicyclomine HCl] 10 mg PO QID #30 cap 02/27/17 Albuterol HFA [Ventolin HFA 90 1 puff IH ASDIR #1 unit 03/05/17 mcg/actuation (8 g)] Benzonatate 200 mg PO TID PRN #20 capsule 03/05/17 Naproxen [Naprosyn] 500 mg PO Q12 PRN #20 tablet 03/07/17 Famotidine [Pepcid] 20 mg PO DAILY #14 tab 04/02/17 - Allergies Allergies/Adverse Reactions: Allergies Allergy/AdvReac Type Severity Reaction Status Date / Time No Known Allergies Allergy Verified 04/07/17 22:33 Review of Systems ROS Statement: Except As Marked, All Systems Reviewed And Found Negative Musculoskeletal: Positive for: Foot Pain (skin irritation) Physical Exam - Reviewed Nursing Documentation Reviewed: Yes Vital Signs Reviewed: Yes - Physical Exam Appears: Positive for: Well, Non-toxic, No Acute Distress (sleeping) Pulses-Dorsalis Pedis (L): 2+ Pulses-Dorsalis Pedis (R): 2+ Pulses-Post. Tibialis (L): 2+ Pulses-Post. Tibialis (R): 2+ Extremity: Positive for: Normal ROM, Capillary Refill, Other (skin maceration noted plantar bilateral forefeet extending to base of digits. No skin opening, drianage, erythema, tenderness, or color change noted. Distal NV, motor intact. ). Negative for: Tenderness, Pedal Edema, Calf Tenderness, Deformity Neurologic/Psych: Positive for: Alert, Oriented. Negative for: Motor/Sensory Deficits - ECG O2 Sat by Pulse Oximetry: 100 - Progress ED Course And Treament: Patient educated on proper foot hygiene. Advised to avoid using new boots and wear more breathable sneakers. Follow up podiatry Return precautions given. Disposition - Clinical Impression Clinical Impression: Skin maceration - Patient ED Disposition Is Patient to be Admitted: No Counseled Patient/Family Regarding: Diagnosis, Need For Followup - Disposition Referrals: Laura Jeff MD [Primary Care Provider] - Podiatry Clinic [Outside] Disposition: Routine/Home Disposition Time: 04:00 Condition: STABLE
== END 2017-04-08 04:01 | disposition home or self-care (01) ==
LOC: H.ER 21:51
DX: R23.8 Other skin changes (principal)

== ENCOUNTER 2017-04-18 15:58 | Emergency (ER) | payer MEDICAID ==
[2017-04-18 15:59] VITALS: BMI 22.2
[2017-04-18 16:31] VITALS: BP 171/112; PULSE 86; RESP 16; TEMP 98.9; O2SAT 98
[2017-04-18] MEDS ORDERED: Albuterol-Ipratrop 3 mg / 0.5 (3 ml) UD INH STA (17:03)
--- NOTE | 2017-04-18 17:05 | ED PDOC ---
HPI: Asthma Time Seen by Provider: 04/18/17 17:00 Chief Complaint (Nursing): Cough, Cold, Congestion Chief Complaint (Provider): Asthma Exacerbation History Per: Patient History/Exam Limitations: no limitations Current Symptoms Are (Timing): Still Present Additional Complaint(s): Dagoberto is a 46 y/o male with a history of asthma who presents to the ED complaining of exacerbated asthma. He states that he cannot sleep because he has trouble breathing. Patient denies fever or chills. PMD: None Past Medical History Reviewed: Historical Data, Nursing Documentation, Vital Signs Vital Signs: Last Vital Signs Temp 98.9 F 04/18/17 16:28 Pulse 86 04/18/17 16:28 Resp 16 04/18/17 16:28 BP 171/112 H 04/18/17 16:28 Pulse Ox 98 04/18/17 16:28 - Medical History PMH: Asthma, Bronchitis, Fractures (Mandible & foot), HTN, Seizures - Surgical History Surgical History: Appendectomy - Family History Family History: States: Unknown Family Hx, Hypertension - Social History Current smoker - smoking cessation education provided: Yes - Home Medications Home Medications: Ambulatory Orders Medication Instructions Recorded Lisinopril/Hydrochlorothiazide 1 tab PO DAILY 11/02/15 [Zestoretic 20-25 mg Tablet] Ciprofloxacin [Cipro] 500 mg PO BID #14 tab 12/23/16 amLODIPine [Norvasc] 10 mg PO DAILY #10 tab 12/23/16 amLODIPine [Norvasc] 10 mg PO DAILY #10 tab 01/29/17 Naproxen [Naprosyn] 500 mg PO Q12H #20 tab 02/05/17 amLODIPine [Norvasc] 10 mg PO DAILY #30 tab 02/05/17 amLODIPine [Norvasc] 10 mg PO QAM #14 tab 02/13/17 Dicyclomine [Dicyclomine HCl] 10 mg PO QID #30 cap 02/27/17 Albuterol HFA [Ventolin HFA 90 1 puff IH ASDIR #1 unit 03/05/17 mcg/actuation (8 g)] Benzonatate 200 mg PO TID PRN #20 capsule 03/05/17 Naproxen [Naprosyn] 500 mg PO Q12 PRN #20 tablet 03/07/17 Famotidine [Pepcid] 20 mg PO DAILY #14 tab 04/02/17 Albuterol HFA [Ventolin HFA 90 2 puff IH [id number] PRN #1 inhaler 04/18/17 mcg/actuation (8 g)] predniSONE [predniSONE Tab] 3 tab PO DAILY #12 tab 04/18/17 - Allergies Allergies/Adverse Reactions: Allergies Allergy/AdvReac Type Severity Reaction Status Date / Time No Known Allergies Allergy Verified 04/18/17 16:28 Review of Systems ROS Statement: Except As Marked, All Systems Reviewed And Found Negative Constitutional: Negative for: Fever, Chills Respiratory: Positive for: Shortness of Breath Physical Exam - Reviewed Nursing Documentation Reviewed: Yes Vital Signs Reviewed: Yes - Physical Exam Appears: Positive for: Well, Non-toxic, No Acute Distress Respiratory: Positive for: Wheezing (diffuse, bilateral) - ECG O2 Sat by Pulse Oximetry: 98 (RA) Pulse Ox Interpretation: Normal - Progress ED Course And Treament: duoneb x 1 dose prednisone 60 mg x 1 dose Medical Decision Making Medical Decision Making: Time: 17:00 Initial Impression: Asthma Exacerbation Initial Plan: --Duoneb --Prednisolone Scribe Attestation: Documented by Derek Ames, acting as a scribe for Naseem Longo PA-C Provider Scribe Attestation: All medical record entries made by the Scribe were at my direction and personally dictated by me. I have reviewed the chart and agree that the record accurately reflects my personal performance of the history, physical exam, medical decision making, and the department course for this patient. I have also personally directed, reviewed, and agree with the discharge instructions and disposition. Disposition - Clinical Impression Clinical Impression: Asthma exacerbation - Patient ED Disposition Is Patient to be Admitted: No - Disposition Referrals: [facility] [Outside] Disposition: Routine/Home Disposition Time: 17:45 Condition: FAIR Prescriptions: Albuterol HFA [Ventolin HFA 90 mcg/actuation (8 g)] 2 puff IH [id number] PRN #1 inhaler PRN Reason: Shortness Of Breath predniSONE [predniSONE Tab] 3 tab PO DAILY #12 tab Instructions: Asthma (DC) Forms: [employer] (T[place]ight)
[2017-04-18] MEDS ORDERED: Albuterol-Ipratrop 3 mg / 0.5 (3 ml) UD ONE (17:29)
== END 2017-04-18 18:40 | disposition home or self-care (01) ==
LOC: H.ER 15:58
DX: J45.901 Unspecified asthma with (acute) exacerbation (principal); I10 Essential (primary) hypertension

== ENCOUNTER 2017-04-30 20:20 | Observation (INO) | payer MEDICAID ==
[2017-04-30 20:20] VITALS: BMI 22.2
[2017-04-30 21:34] LABS: BASO # 0.1 K/uL (0.0-0.2); BASO % 0.9 % (0.0-2.0); EOS % 0.6 % (0.0-4.0); HEMOGLOBIN 12.1 g/dL (12.0-18.0); LYMPH # 1.9 K/uL (1.0-4.3); LYMPH % 28.3 % (20.0-40.0); MEAN CELL VOLUME 96.9 fl (80.0-94.0); MEAN CORPUSCULAR HEMOGLOBIN 32.8 pg (27.0-31.0); MEAN CORPUSCULAR HGB CONC 33.8 g/dL (33.0-37.0); MEAN PLATELET VOLUME 7.9 fl (7.2-11.7); MONO # 0.6 K/uL (0.0-0.8); MONO % 9.1 % (0.0-10.0); NEUT # 4.1 K/uL (1.8-7.0); NEUT % 61.1 % (50.0-75.0); NRBC % 0.2 % (0.0-0.0); RBC 3.68 Mil/uL (4.40-5.90); WHITE BLOOD COUNT 6.8 K/uL (4.8-10.8)
[2017-04-30 21:41] LABS: ALB/GLOB RATIO 1.4 (1.0-2.1); ALBUMIN 4.2 g/dL (3.5-5.0); ALT/SGPT 36 U/L (21-72); AST/SGOT 42 U/L (17-59); BLOOD UREA NITROGEN 18 mg/dl (9-20); CALCIUM 9.3 mg/dL (8.4-10.2); GFR AFRICAN-AMERICAN > 60; GFR NON-AFRICAN AMERICAN > 60
--- NOTE | 2017-04-30 21:52 | ED PDOC ---
HPI: Chest Pain Time Seen by Provider: 04/30/17 20:57 Chief Complaint (Nursing): Chest Pain Chief Complaint (Provider): Chest Pain History Per: Patient History/Exam Limitations: no limitations Onset/Duration Of Symptoms: Days (x2) Current Symptoms Are (Timing): Still Present Additional Complaint(s): 46 year old male with a past medical history of HTN, who presents to the ED complaining of chest pain x2 days. Patient describes his chest pain as a chest tightness sensation. States he has had chest pain for years, but has become more aware of it over the past 2 days. Denies nausea, vomiting, or diaphoresis. Also complaining of shortness of breath. PMD: None provided Past Medical History Reviewed: Historical Data, Nursing Documentation, Vital Signs Vital Signs: Last Vital Signs Temp 98.0 F 04/30/17 20:33 Pulse 83 04/30/17 20:33 Resp 16 04/30/17 20:33 BP 182/123 H 04/30/17 20:33 Pulse Ox 100 05/01/17 02:23 - Medical History PMH: Asthma, Bronchitis, Fractures (Mandible & foot), HTN, Seizures - Surgical History Surgical History: Appendectomy - Family History Family History: States: Unknown Family Hx, Hypertension - Social History Current smoker - smoking cessation education provided: Yes (4-5 cigarettes daily ) - Home Medications Home Medications: Ambulatory Orders Medication Instructions Recorded Lisinopril/Hydrochlorothiazide 1 tab PO DAILY 11/02/15 [Zestoretic 20-25 mg Tablet] Ciprofloxacin [Cipro] 500 mg PO BID #14 tab 12/23/16 amLODIPine [Norvasc] 10 mg PO DAILY #10 tab 12/23/16 amLODIPine [Norvasc] 10 mg PO DAILY #10 tab 01/29/17 Naproxen [Naprosyn] 500 mg PO Q12H #20 tab 02/05/17 amLODIPine [Norvasc] 10 mg PO DAILY #30 tab 02/05/17 amLODIPine [Norvasc] 10 mg PO QAM #14 tab 02/13/17 Dicyclomine [Dicyclomine HCl] 10 mg PO QID #30 cap 02/27/17 Albuterol HFA [Ventolin HFA 90 1 puff IH ASDIR #1 unit 03/05/17 mcg/actuation (8 g)] Benzonatate 200 mg PO TID PRN #20 capsule 03/05/17 Naproxen [Naprosyn] 500 mg PO Q12 PRN #20 tablet 03/07/17 Famotidine [Pepcid] 20 mg PO DAILY #14 tab 04/02/17 Albuterol HFA [Ventolin HFA 90 2 puff IH [id number] PRN #1 inhaler 04/18/17 mcg/actuation (8 g)] predniSONE [predniSONE Tab] 3 tab PO DAILY #12 tab 04/18/17 - Allergies Allergies/Adverse Reactions: Allergies Allergy/AdvReac Type Severity Reaction Status Date / Time No Known Allergies Allergy Verified 04/30/17 20:33 Review of Systems ROS Statement: Except As Marked, All Systems Reviewed And Found Negative Constitutional: Negative for: Sweats Cardiovascular: Positive for: Chest Pain Respiratory: Positive for: Shortness of Breath Gastrointestinal: Negative for: Nausea, Vomiting Physical Exam - Reviewed Nursing Documentation Reviewed: Yes Vital Signs Reviewed: Yes - Physical Exam Appears: Positive for: Non-toxic, No Acute Distress Head Exam: Positive for: ATRAUMATIC, NORMAL INSPECTION, NORMOCEPHALIC Skin: Positive for: Normal Color, Warm, Dry. Negative for: Rash Eye Exam: Positive for: EOMI, Normal appearance, PERRL Neck: Positive for: Normal, Painless ROM, Supple Cardiovascular/Chest: Positive for: Regular Rate, Rhythm. Negative for: Murmur Respiratory: Positive for: Normal Breath Sounds. Negative for: Respiratory Distress Gastrointestinal/Abdominal: Positive for: Normal Exam, Bowel Sounds, Soft. Negative for: Tenderness Back: Positive for: Normal Inspection. Negative for: L CVA Tenderness, R CVA Tenderness, Vertebral Tenderness Extremity: Positive for: Normal ROM. Negative for: Pedal Edema, Deformity Neurologic/Psych: Positive for: Alert, Oriented (x3). Negative for: Motor/ Sensory Deficits - Laboratory Results Result Diagrams: 04/30/17 21:19 04/30/17 21:19 - ECG O2 Sat by Pulse Oximetry: 100 (RA) Pulse Ox Interpretation: Normal Medical Decision Making Medical Decision Making: Time: 21:02 Initial Impression: 46 y/o male with chest pain Initial Plan: --EKG --CMP --Urine Drug Screen --Troponin I --CBC w/ differential --Aspirin Chewable 324 mg PO --Heplock Insertion --Reevaluation Patient hospitalized as observation patient due to smoking and HTN. Case discussed with Dr. Sidhu, family resident air sampling and monitoring. Scribe Attestation: Documented by Sigifredo Pepe, acting as a scribe for Elton Masters MD. Provider Scribe Attestation: All medical record entries made by the Scribe were at my direction and personally dictated by me. I have reviewed the chart and agree that the record accurately reflects my personal performance of the history, physical exam, medical decision making, and the department course for this patient. I have also personally directed, reviewed, and agree with the discharge instructions and disposition. Disposition - Clinical Impression Clinical Impression: Chest pain - Disposition Disposition Time: 01:00 Condition: FAIR Forms: [employer] (Wolof)
[2017-05-01 00:05] LABS: BARBITURATES, UR NEGATIVE (NEGATIVE)
[2017-05-01 00:10] LABS: BENZODIAZEPINES, UR NEGATIVE (NEGATIVE); OPIATES, UR NEGATIVE (NEGATIVE); PHENCYCLIDINE, UR POSITIVE (NEGATIVE)
[2017-05-01] MEDS ORDERED: Nitroglycerin 2% Ointment Foilpak UD TOP STA (02:00)
[2017-05-01] MEDS ORDERED: Labetalol 5 mg/ml Inj 20ML IVP STA (02:25)
[2017-05-01] MEDS ORDERED: Nitroglycerin 2% Ointment Foilpak UD TOP ONE ×2 (02:37→02:40)
--- NOTE | 2017-05-01 02:40 | CP.PCM.HP ---
History of Present Illness - History of Present Illness History of Present Illness: 46 year old male, with a history of uncontrolled HTN, PCP abuse, presenting to the ED left sided chest pain which has been occurring on and off for the last couple of months. Pain is squeezing in nature and can occur at any time, there is no aggravating or relieving factors. Today he was at the movie theater when the pain started, quantifies pain at a 6/10 non radiating. Patient states he has been taking medication for blood pressure but is unsure of the name of the mediation. He denies headaches, neck pain, vision changes, sob, abd pain, n/v / parasthesias, focal weakness. Presenting with initial BP 182/123. ED Course: Troponin x 1 negative, Nitro paste, EKG, Chest X Ray, CBC and CMP WNL. U tox shows : + PCP PMH: HTN PSH: appendectomy Allergies: nkda FH: Maternal and Paternal HTN SH: Occasional marijuana use, PCP positive in urine, Works with [employer] company PMD: [facility] : Dr. Zeng on the last visit 09/2016 Present on Admission - Present on Admission Any Indicators Present on Admission: No Review of Systems - Review of Systems All systems: reviewed and no additional remarkable complaints except Past Patient History - Infectious Disease Hx of Infectious Diseases: None - Past Medical History & Family History Past Medical History?: Yes - Past Social History Smoking Status: Light Smoker < 10 Cigarettes Daily - CARDIAC Hx Hypertension: Yes - PULMONARY Hx Asthma: Yes Hx Bronchitis: Yes - NEUROLOGICAL Hx Seizures: Yes - MUSCULOSKELETAL/RHEUMATOLOGICAL Hx Fractures: Yes (Mandible & foot) - PSYCHIATRIC Hx Substance Use: Yes (PCP) - SURGICAL HISTORY Hx Appendectomy: Yes - ANESTHESIA Hx Anesthesia: Yes Hx Anesthesia Reactions: No Meds Allergies/Adverse Reactions: Allergies Allergy/AdvReac Type Severity Reaction Status Date / Time No Known Allergies Allergy Verified 04/30/17 20:33 Physical Exam - Constitutional Appears: No Acute Distress - Head Exam Head Exam: NORMAL INSPECTION - Eye Exam Eye Exam: Normal appearance - Neck Exam Neck exam: Positive for: Normal Inspection - Respiratory Exam Respiratory Exam: Clear to Auscultation Bilateral, NORMAL BREATHING PATTERN. absent: Rhonchi, Wheezes - Cardiovascular Exam Cardiovascular Exam: REGULAR RHYTHM, +S1, +S2 - GI/Abdominal Exam GI & Abdominal Exam: Normal Bowel Sounds, Soft. absent: Tenderness - Extremities Exam Extremities exam: Positive for: normal inspection. Negative for: calf tenderness - Neurological Exam Neurological exam: Alert, CN II-XII Intact, Oriented x3 - Skin Skin Exam: Normal Color, Warm Results - Vital Signs Recent Vital Signs: Last Vital Signs Temp 98.0 F 04/30/17 20:33 Pulse 83 04/30/17 20:33 Resp 16 04/30/17 20:33 BP 182/123 H 04/30/17 20:33 Pulse Ox 100 05/01/17 02:32 - Labs Result Diagrams: 04/30/17 21:19 04/30/17 21:19 Labs: Laboratory Results - last 24 hr 04/30/17 04/30/17 04/30/17 21:19 21:19 23:44 WBC 6.8 RBC 3.68 L Hgb 12.1 Hct 35.7 MCV 96.9 H MCH 32.8 H MCHC 33.8 RDW 13.0 Plt Count 303 MPV 7.9 Neut % (Auto) 61.1 Lymph % (Auto) 28.3 Hughes % (Auto) 9.1 Eos % (Auto) 0.6 Baso % (Auto) 0.9 Neut # (Auto) 4.1 Lymph # (Auto) 1.9 [place] # (Auto) 0.6 Eos # (Auto) 0.0 Baso # (Auto) 0.1 Sodium 144 Potassium 5.0 Chloride 103 Carbon Dioxide 29 Anion Gap 17 BUN 18 Creatinine 1.2 Est GFR ( Amer) > 60 Est GFR (Non-Af Amer) > 60 Random Glucose 90 Calcium 9.3 Total Bilirubin 0.5 AST 42 ALT 36 Alkaline Phosphatase 68 Troponin I < 0.0120 Total Protein 7.3 Albumin 4.2 Globulin 3.0 Albumin/Globulin Ratio 1.4 Urine Opiates Screen Negative Urine Methadone Screen Negative Ur Barbiturates Screen Negative Ur Phencyclidine Scrn Positive H Ur Amphetamines Screen Negative U Benzodiazepines Scrn Negative U Oth Cocaine Metabols Negative U Cannabinoids Screen Negative Assessment & Plan - Assessment and Plan (Free Text) Assessment: 45 year old male, with a history of HTN,, PCP abuse presenting for hypertensive urgency and chest pain 1) Chest pain - admit to Tele - EKG: no ischemic changes seen - Troponin x1 neg - Asprin x1 and nitroglycerin received in ER - F/U w/ serial troponin, chest x ray 2) HTN - C/W home meds 3) DVT prophylaxis SCD
[2017-05-01] MEDS ORDERED: Albuterol HFA 90 mcg/actuation (8 g) INH PRN (02:59)
--- NOTE | 2017-05-01 09:21 | RAD ---
HISTORY: Chest pain COMPARISON: 03/05/2017. FINDINGS: LUNGS: The lungs are well inflated and clear. PLEURA: No significant pleural effusion identified, no pneumothorax apparent. CARDIOVASCULAR: Normal. OSSEOUS STRUCTURES: No significant abnormalities. VISUALIZED UPPER ABDOMEN: Normal. OTHER FINDINGS: None. IMPRESSION: No active pulmonary disease.
--- NOTE | 2017-05-01 15:57 | CP.PCM.PN ---
Subjective - Date & Time of Evaluation Date of Evaluation: 05/01/17 Time of Evaluation: 07:40 - Subjective Subjective: Patient was seen and examined this morning. NAD, patient was comfortably sleeping on bed, Patient admits some mild reproducible substernal, which is improved. Patient denies any nausea, vomiting, SOB, abdominal pain, palpitations , dizziness, weakness or any urinary symptoms. Objective - Vital Signs/Intake and Output Vital Signs (last 24 hours): Temp Pulse Resp BP Pulse Ox 98.0 F 78 16 135/90 98 04/30/17 20:33 05/01/17 14:59 05/01/17 14:53 05/01/17 14:59 05/01/17 14:57 - Medications Medications: Current Medications Albuterol (Ventolin Hfa 90 Mcg/Actuation (8 G)) 2 puff INH RQ4 PRN PRN Reason: Shortness of Breath Enoxaparin Sodium (Lovenox) 40 mg SC DAILY MARLA PRN Reason: Protocol Lisinopril (Zestril) 10 mg PO DAILY MARLA - Labs Labs: 04/30/17 21:19 04/30/17 21:19 - Constitutional Appears: No Acute Distress - Head Exam Head Exam: NORMAL INSPECTION, NORMOCEPHALIC - Eye Exam Eye Exam: Normal appearance - ENT Exam ENT Exam: Mucous Membranes Moist - Neck Exam Neck Exam: Normal Inspection - Respiratory Exam Respiratory Exam: Clear to Ausculation Bilateral, NORMAL BREATHING PATTERN - Cardiovascular Exam Cardiovascular Exam: REGULAR RHYTHM - GI/Abdominal Exam GI & Abdominal Exam: Soft, Normal Bowel Sounds - Extremities Exam Extremities Exam: Normal Capillary Refill, Normal Inspection. absent: Pedal Edema - Back Exam Back Exam: NORMAL INSPECTION - Neurological Exam Neurological Exam: Alert, Awake, CN II-XII Intact, Oriented x3 - Psychiatric Exam Psychiatric exam: Normal Affect - Skin Skin Exam: Dry, Intact, Normal Color Assessment and Plan - Assessment and Plan (Free Text) Assessment: A/P: 45 y/o male with PMH of uncontrolled HTN, PCP abuse admitted for evaluation and treatment of acute chest pain Acute Chest pain - Reproducible, possibly noncardiac - S/p Asprin, Nitro past in ER x1 - Troponin x3 negative - CXR: no active pulmonary disease - EKG: revels possible septal infract (age undetermined), LVH and NSR - Echo in 2016: 20-25 EF - Will repeat Echo today - Lisinopril 10mg PO HTN - Uncontrolled, (patient noncompliance with medications) - Hold Norvasc due to hx of CHF - Continue Lisinopril 10mg PO PCP abuse - Patient admits PCP and marijuana use - Urine dx: positive for PCP, negative for marijuana - Cardiac and health risks associated with substans abuse discussed with patient DVT PPX - Lovenox 40mg SC
--- NOTE | 2017-05-01 17:46 | CARD ---
APPROVED REPORT EXAM: Two-dimensional and M-mode echocardiogram with Doppler and color Doppler. Other Information Quality : ExcellentRhythm : NSR INDICATION Chest Pain 2D DIMENSIONS IVSd1.82 (0.7-1.1cm)LVDd3.47 (3.9-5.9cm) LVOT Diameter2.32 (1.8-2.4cm)PWd1.70 (0.7-1.1cm) IVSs1.59 (0.8-1.2cm)LVDs3.35 (2.5-4.0cm) FS (%) 3.6 %PWs1.78 (0.8-1.2cm) LVEF (%)55.0 (>50%) M-Mode DIMENSIONS Left Atrium (MM)2.75 (2.5-4.0cm)IVSd1.53 (0.7-1.1cm) Aortic Root3.23 (2.2-3.7cm)LVDd4.49 (4.0-5.6cm) Aortic Cusp Exc.2.34 (1.5-2.0cm)PWd1.41 (0.7-1.1cm) IVSs1.53 cmFS (%) 19 % LVDs3.66 (2.0-3.8cm)PWs1.82 cm Mitral Valve MV E Wlwgpgms80.7cm/sMV DECEL [id number] A Wxbkelgj12.5cm/s MV LHQ23bqS/A ratio0.8MVA (PHT)3.33cm2 TDI Lateral E' Peak V6.84cm/sMedial E' Peak V4.32cm/sE/Lateral E'5.4 E/Medial E'8.5 Tricuspid Valve TR Peak Hkhnngzy231tn/sRAP [id number] Peak Gr.13mmHg [id number] LEFT VENTRICLE The left ventricle is normal size. There is moderate to severe concentric left ventricular hypertrophy, speckled pattern, Consider infiltrative Cardiomyopathy The left ventricular function is normal. The left ventricular ejection fraction is within the normal range. There is normal LV segmental wall motion. Transmitral Doppler flow pattern is Grade I-abnormal relaxation pattern. RIGHT VENTRICLE The right ventricle is normal size. There is normal right ventricular wall thickness. The right ventricular systolic function is normal. ATRIA The left atrium size is normal. The right atrium size is normal. AORTIC VALVE The aortic valve is mildly thickened. There is trace to mild aortic regurgitation. There is no aortic valvular stenosis. MITRAL VALVE The mitral valve is mildly thickened. There is no mitral valve stenosis. Mitral regurgitation is trace. TRICUSPID VALVE The tricuspid valve is normal in structure. There is mild tricuspid regurgitation. PULMONIC VALVE The pulmonary valve is normal in structure. There is no pulmonic valvular regurgitation. GREAT VESSELS The aortic root is normal in size. The IVC is normal in size and collapses >50% with inspiration. PERICARDIAL EFFUSION The pericardium appears normal. <Conclusion> The left ventricle is normal size. There is moderate to severe concentric left ventricular hypertrophy, speckled pattern, Consider infiltrative Cardiomyopathy The left ventricular function is normal. The left ventricular ejection fraction is within the normal range. There is normal LV segmental wall motion. Transmitral Doppler flow pattern is Grade I-abnormal relaxation pattern. There is trace to mild aortic regurgitation.
--- NOTE | 2017-05-01 23:42 | CARD ---
APPROVED REPORT EKG Measurement Heart [id number] <Conclusion> Normal sinus rhythm Possible Left atrial enlargement Incomplete right bundle branch block Left ventricular hypertrophy Cannot rule out Septal infarct, age undetermined Abnormal ECG
[2017-05-02] MEDS: Enoxaparin 40 mg Syringe SC SCH ×2 (09:45→09:48)
--- NOTE | 2017-05-02 10:18 | CP.PCM.DIS ---
Provider - Provider Date of Admission: 05/01/17 02:00 Attending physician: Ava Valdez MD Time Spent in preparation of Discharge (in minutes): 30 Diagnosis - Discharge Diagnosis (1) Atypical chest pain Status: Acute (2) Uncontrolled hypertension Status: Acute Hospital Course - Lab Results Lab Results: Most Recent Lab Values WBC 6.8 K/uL (4.8-10.8) 04/30/17 21: RBC 3.68 Mil/uL (4.40-5.90) L 04/30/17 21:19 Hgb 12.1 g/dL (12.0-18.0) 04/30/17 21: Hct 35.7 % (35.0-51.0) 04/30/17 21: MCV 96.9 fl (80.0-94.0) H 04/30/17 21: MCH 32.8 pg (27.0-31.0) H 04/30/17 21: MCHC 33.8 g/dL (33.0-37.0) 04/30/17 21: RDW 13.0 % (11.5-14.5) 04/30/17 21: Plt Count 303 K/uL (130-400) 04/30/17 21: MPV 7.9 fl (7.2-11.7) 04/30/17 21: Neut % (Auto) 61.1 % (50.0-75.0) 04/30/17 21: Lymph % (Auto) 28.3 % (20.0-40.0) 04/30/17 21: [place] % (Auto) 9.1 % (0.0-10.0) 04/30/17 21: Eos % (Auto) 0.6 % (0.0-4.0) 04/30/17 21: Baso % (Auto) 0.9 % (0.0-2.0) 04/30/17: Neut # (Auto) 4.1 K/uL (1.8-7.0) 04/30/17 21: Lymph # (Auto) 1.9 K/uL (1.0-4.3) 04/30/17 21: [place] # (Auto) 0.6 K/uL (0.0-0.8) 04/30/17 21:19 Eos # (Auto) 0.0 K/uL (0.0-0.7) 04/30/17 21:19 Baso # (Auto) 0.1 K/uL (0.0-0.2) 04/30/17 21:19 Sodium 144 mmol/l (132-148) 04/30/17 21:19 Potassium 5.0 MMOL/L (3.6-5.0) 04/30/17 21:19 Chloride 103 mmol/L (98-107) 04/30/17 21:19 Carbon Dioxide 29 mmol/L (22-30) 04/30/17 21:19 Anion Gap 17 (10-20) 04/30/17 21:19 BUN 18 mg/dl (9-20) 04/30/17 21:19 Creatinine 1.2 mg/dl (0.8-1.5) 04/30/17 21:19 Est GFR ( Amer) > 60 04/30/17 21:19 Est GFR (Non-Af Amer) > 60 04/30/17 21:19 Random Glucose 90 mg/dL (75-110) 04/30/17 21:19 Calcium 9.3 mg/dL (8.4-10.2) 04/30/17 21:19 Total Bilirubin 0.5 mg/dl (0.2-1.3) 04/30/17 21:19 AST 42 U/L (17-59) 04/30/17 21:19 ALT 36 U/L (21-72) 04/30/17 21:19 Alkaline Phosphatase 68 U/L (38-126) 04/30/17 21:19 Troponin I 0.0200 ng/mL (0.00-0.120) 05/01/17 12:30 Total Protein 7.3 G/DL (6.3-8.2) 04/30/17 21:19 Albumin 4.2 g/dL (3.5-5.0) 04/30/17 21:19 Globulin 3.0 gm/dL (2.2-3.9) 04/30/17 21:19 Albumin/Globulin Ratio 1.4 (1.0-2.1) 04/30/17 21:19 Urine Opiates Screen Negative (NEGATIVE) 04/30/17 23:44 Urine Methadone Screen Negative (NEGATIVE) 04/30/17 23:44 Ur Barbiturates Screen Negative (NEGATIVE) 04/30/17 23:44 Ur Phencyclidine Scrn Positive (NEGATIVE) H 04/30/17 23:44 Ur Amphetamines Screen Negative (NEGATIVE) 04/30/17 23:44 U Benzodiazepines Scrn Negative (NEGATIVE) 04/30/17 23:44 U Oth Cocaine Metabols Negative (NEGATIVE) 04/30/17 23:44 U Cannabinoids Screen Negative (NEGATIVE) 04/30/17 23:44 - Hospital Course Hospital Course: 46 y/o M with history of uncontrolled HTN presented to ED with intermittent left sided chest pain which had been occurring the last several months and had worsened 2 days prior to admission. While admitted patient had EKG which revealed possible septal infract (age undetermined), LVH and NSR. Troponins were negative x3 and an echo revealed severe concentric LVH with normal ejection fraction and a nonspecific possible infiltrative cardiomyopathy. His pain improved during admission and his blood pressure was well controlled with lisinopril 10mg daily. Decision was made to d/c home with follow up to [facility] for further w/u of infiltrative cardiomyopathy. Discharge Exam - Head Exam Head Exam: NORMAL INSPECTION, NORMOCEPHALIC - Eye Exam Eye Exam: EOMI, PERRL. absent: Scleral icterus - ENT Exam ENT Exam: Mucous Membranes Moist - Respiratory Exam Respiratory Exam: Clear to PA & Lateral, NORMAL BREATHING PATTERN. absent: Rhonchi, Wheezes, Respiratory Distress - Cardiovascular Exam Cardiovascular Exam: REGULAR RHYTHM, RRR, +S1, +S2, +S4. absent: Systolic Murmur - GI/Abdominal Exam GI & Abdominal Exam: Normal Bowel Sounds, Soft. absent: Distended, Guarding, Rebound, Tenderness - Extremities Exam Additional comments: No calf tenderness or pedal edema - Neurological Exam Neurological exam: Alert, Oriented x3 - Psychiatric Exam Psychiatric exam: Normal Affect, Normal Mood - Skin Skin Exam: Dry, Warm Discharge Plan - Discharge Medications Prescriptions: Lisinopril [Zestril] 10 mg PO DAILY #30 tab - Follow Up Plan Condition: FAIR Disposition: HOME/ ROUTINE Patient education suggested?: Yes Instructions: High Blood Pressure (DC), Chest Pain (DC) Additional Instructions: Amlodipine changed to lisinopril 10mg daily Follow up at [facility] on 05/05/17 for blood pressure and echo follow up Will need referral to stock checker Referrals: [facility] [place] [Outside]
[2017-05-02] MEDS ORDERED: Alum-Mag Hydrox-Simethicone Susp (30 mL) PO ONE (10:19)
[2017-05-02 12:31] VITALS: O2SAT 100
[2017-05-02 15:55] VITALS: BP 115/77; PULSE 74; RESP 20; TEMP 98.5
== END 2017-05-02 18:20 | disposition home or self-care (01) ==
LOC: H.ER 20:20 → H.ERHOLD 05-01 02:00 → H.TEL 05-01 17:06
PROVIDERS: ADMIT Family Medicine Geriatric Medicine; ATTEND Family Medicine Geriatric Medicine
DX: R07.89 Other chest pain (principal); F12.90 Cannabis use, unspecified, uncomplicated; F16.10 Hallucinogen abuse, uncomplicated; I16.0 Hypertensive urgency; J45.909 Unspecified asthma, uncomplicated; I10 Essential (primary) hypertension; F17.210 Nicotine dependence, cigarettes, uncomplicated; Z91.14 Patient's other noncompliance with medication regimen
CPT/HCPCS: 71045; 80053; 80324; 80345; 80346; 80349; 80353; 80358; 80361; 83992; 84484; 85025; 93005; 93306; 96374; 99285; G0378

== ENCOUNTER 2017-05-04 22:26 | Emergency (ER) | payer MEDICAID ==
[2017-05-04 22:34] VITALS: BMI 25.8
[2017-05-04 23:12] LABS: BASO # 0.1 K/uL (0.0-0.2); BASO % 0.8 % (0.0-2.0); EOS # 0.1 K/uL (0.0-0.7); EOS % 1.6 % (0.0-4.0); HEMOGLOBIN 10.9 g/dL (12.0-18.0); LYMPH # 2.1 K/uL (1.0-4.3); LYMPH % 31.8 % (20.0-40.0); MEAN CELL VOLUME 98.5 fl (80.0-94.0); MEAN CORPUSCULAR HEMOGLOBIN 32.5 pg (27.0-31.0); MEAN PLATELET VOLUME 7.6 fl (7.2-11.7); MONO # 0.7 K/uL (0.0-0.8); MONO % 9.9 % (0.0-10.0); NEUT # 3.7 K/uL (1.8-7.0); NEUT % 55.9 % (50.0-75.0); NRBC % 0.1 % (0.0-0.0); RBC 3.35 Mil/uL (4.40-5.90); RED CELL DISTRIBUTION WIDTH 13.3 % (11.5-14.5); WHITE BLOOD COUNT 6.7 K/uL (4.8-10.8)
[2017-05-04 23:23] LABS: BLOOD UREA NITROGEN 20 mg/dl (9-20); CALCIUM 8.9 mg/dL (8.4-10.2); GFR AFRICAN-AMERICAN > 60; GFR NON-AFRICAN AMERICAN > 60
[2017-05-04 23:26] LABS: INR 0.9 (0.9-1.2); PARTIAL THROMBOPLASTIN TIME 33.3 Seconds (25.6-37.1); PROTHROMBIN TIME 9.4 Seconds (9.8-13.1)
[2017-05-04 23:37] VITALS: TEMP 98.1
--- NOTE | 2017-05-04 23:55 | ED PDOC ---
HPI: Chest Pain Time Seen by Provider: 05/04/17 22:34 Chief Complaint (Nursing): Chest Pain Chief Complaint (Provider): Chest Pain History Per: Patient History/Exam Limitations: intoxication Onset/Duration Of Symptoms: Hrs (x8.5 hours), Sudden Onset Current Symptoms Are (Timing): Still Present Associated Symptoms: denies: Dyspnea Additional Complaint(s): 46 year old male presents to ED with complaints of chest pain x8.5 hours and has a past medical history of uncontrolled HTN and alcohol abuse. Notes onset of non-radiating chest pain while at rest when "hanging out". Patient refuses to elaborate further, but denies drug abuse and admits to alcohol ingestion. (- ) SOB. PCP: [facility] - Risk Factors TAD Risk Factors: Pos: Hypertension Past Medical History Reviewed: Historical Data, Nursing Documentation, Vital Signs Vital Signs: Last Vital Signs Temp 98.1 F 05/04/17 23:37 Pulse 87 05/05/17 03:06 Resp 14 05/05/17 03:06 BP 139/89 05/05/17 03:06 Pulse Ox 97 05/05/17 06:06 - Medical History PMH: Asthma, Bronchitis, Fractures (Mandible & foot), HTN, Seizures - Surgical History Surgical History: Appendectomy - Family History Family History: States: Unknown Family Hx, Hypertension - Social History Alcohol: > 2 Drinks/Day - Home Medications Home Medications: Ambulatory Orders Medication Instructions Recorded Albuterol HFA [Ventolin HFA 90 1 puff IH DAILY PRN 05/01/17 mcg/actuation (8 g)] Lisinopril [Zestril] 10 mg PO DAILY #30 tab 05/02/17 - Allergies Allergies/Adverse Reactions: Allergies Allergy/AdvReac Type Severity Reaction Status Date / Time No Known Allergies Allergy Verified 04/30/17 20:33 JYOTI Risk Score for UA/NSTEMI - JYOTI Risk Score Age > 64: NO JYOTI Score: 0 Risk %: 5% Curb-65 Severity Score - CURB-65 Severity Score Age >64: No Curb-65 Score: 0 Percentage 30-day mortality: 0.6% Wells Criteria for PE - Wells Criteria for Pulmonary Embolism Immobilization at least 3 days;Surgery previous 4 weeks: No Previous, objectively diagnosed PE or DVT: No Hemoptysis: No Total Score: 0 Review of Systems ROS Statement: Except As Marked, All Systems Reviewed And Found Negative Cardiovascular: Positive for: Chest Pain Respiratory: Negative for: Shortness of Breath Physical Exam - Reviewed Nursing Documentation Reviewed: Yes Vital Signs Reviewed: Yes - Physical Exam Appears: Positive for: Non-toxic, No Acute Distress (Intoxicated-appearing, alcohol on breath) Skin: Positive for: Normal Color, Warm, Dry Eye Exam: Positive for: Normal appearance Cardiovascular/Chest: Positive for: Regular Rate, Rhythm. Negative for: Murmur Respiratory: Positive for: Normal Breath Sounds. Negative for: Respiratory Distress Gastrointestinal/Abdominal: Positive for: Normal Exam, Soft. Negative for: Tenderness Extremity: Positive for: Normal ROM Neurologic/Psych: Positive for: Alert, Gait (unsteady), Other (patient slurring words). Negative for: Oriented, Motor/Sensory Deficits - Laboratory Results Result Diagrams: 05/04/17 23:08 05/04/17 23:08 - ECG O2 Sat by Pulse Oximetry: 97 (RA) Pulse Ox Interpretation: Normal Medical Decision Making Medical Decision Makin Initial impression: alcohol abuse and non-cardiac chest pain Initial plan: * EKG * Labs * EtOH serum * Trop I * PTT/PT * CXR * Norvasc 10mg PO * Re-eval 0200 Labs reviewed: no clinically significant abnormalities except for elevated alcohol level. 0600 Upon re-evaluation patient is alert, oriented x3, and walks with a steady gait. Patient is stable for discharge. Patient counseled against alcohol abuse. Scribe Attestation: Documented by Camila Elias acting as a scribe for Quan Benitez MD. Scribe Attestation: All medical record entries made by the Scribe were at my direction and personally dictated by me. I have reviewed the chart and agree that the record accurately reflects my personal performance of the history, physical exam, medical decision making, and the department course for this patient. I have also personally directed, reviewed, and agree with the discharge instructions and disposition. Disposition - Clinical Impression Clinical Impression: Alcohol abuse, Hypertension, Chest pain - Disposition Referrals: Laura Jeff MD [Family Provider] - Disposition: Routine/Home Disposition Time: 06:00 Condition: IMPROVED Instructions: High Blood Pressure in Adults, Chest Pain (DC), Alcohol Abuse and Alcoholism (DC) Forms: [employer] (Swedish)
[2017-05-05 03:07] VITALS: BP 139/89; PULSE 87; RESP 14
[2017-05-05 06:04] VITALS: O2SAT 97
--- NOTE | 2017-05-05 09:19 | RAD ---
PROCEDURE: CHEST RADIOGRAPH, 1 VIEW HISTORY: chest pain, etoh COMPARISON: Chest radiograph dated 05/01/2017 FINDINGS: LUNGS: Clear. PLEURA: No pneumothorax or pleural fluid seen. CARDIOVASCULAR: Normal. OSSEOUS STRUCTURES: No significant abnormalities. VISUALIZED UPPER ABDOMEN: Normal. OTHER FINDINGS: None. IMPRESSION: No active disease.
--- NOTE | 2017-05-08 18:28 | CARD ---
APPROVED REPORT EKG Measurement Heart [id number] <Conclusion> Normal sinus rhythm Possible Left atrial enlargement Left ventricular hypertrophy Abnormal ECG
== END 2017-05-05 06:19 | disposition home or self-care (01) ==
LOC: H.ER 22:26
DX: R07.89 Other chest pain (principal); F10.10 Alcohol abuse, uncomplicated; I10 Essential (primary) hypertension; J45.909 Unspecified asthma, uncomplicated

== ENCOUNTER 2017-05-18 00:25 | Emergency (ER) | payer MEDICAID ==
[2017-05-18 00:56] VITALS: BMI 19.5
[2017-05-18 00:58] VITALS: BP 152/99; PULSE 86; RESP 18; TEMP 98.5
[2017-05-18] MEDS ORDERED: Albuterol-Ipratrop 3 mg / 0.5 (3 ml) UD IH STA (01:47)
[2017-05-18] MEDS ORDERED: Albuterol-Ipratrop 3 mg / 0.5 (3 ml) UD ONE (02:08)
[2017-05-18 04:11] VITALS: O2SAT 98
--- NOTE | 2017-05-18 04:11 | ED PDOC ---
History of Present Illness History of Present Illness: 46 year old male with a history of asthma presents to the ED complaining of cough and wheezing. Patient is a smoker who ran out of his inhaler. Denies: (-) shortness of breath, (-) fever; (-) cough; (-) sputum production, (-) chest pain. PMD: [facility] HPI: Influenza Time Seen by Provider: 05/18/17 00:56 Chief Complaint: Cough, Cold, Congestion Chief Complaint (Provider): Cough, Cold, Congestion History Per: Patient Exam Limitations: no limitations Onset/Duration Of Symptoms: Days (x 1) Past Medical History Vital Signs: Last Vital Signs Temp 98.5 F 05/18/17 00:56 Pulse 86 05/18/17 00:56 Resp 18 05/18/17 00:56 BP 152/99 H 05/18/17 00:56 Pulse Ox 96 05/18/17 02:46 - Medical History PMH: Asthma, Bronchitis, Fractures (Mandible & foot), HTN, Seizures - Surgical History Surgical History: Appendectomy - Family History Family History: States: Unknown Family Hx, Hypertension - Home Medications Home Medications: Ambulatory Orders Medication Instructions Recorded Albuterol HFA [Ventolin HFA 90 1 puff IH DAILY PRN 05/01/17 mcg/actuation (8 g)] Lisinopril [Zestril] 10 mg PO DAILY #30 tab 05/02/17 Albuterol HFA [Ventolin HFA 90 2 puff IH [id number] #1 puff 05/18/17 mcg/actuation (8 g)] - Allergies Allergies/Adverse Reactions: Allergies Allergy/AdvReac Type Severity Reaction Status Date / Time No Known Allergies Allergy Verified 05/18/17 00:56 Review of Systems ROS Statement: Except As Marked, All Systems Reviewed And Found Negative Cardiovascular: Negative for: Chest Pain Respiratory: Positive for: Cough, Wheezing. Negative for: Shortness of Breath Physical Exam - Reviewed Nursing Documentation Reviewed: Yes Vital Signs Reviewed: Yes - Physical Exam Comments: GENERAL APPEARANCE: Patient is awake, alert, oriented x 3, in no acute distress. Speaking in full sentences, breathing easy and unlabored. SKIN: Warm, dry; (-) cyanosis. EYES: (-) conjunctival pallor. ENMT: Mucous membranes moist. Airway patent: (-) stridor. Pharynx: (-) swelling, (-) erythema. NECK: (-) tenderness, (-) stiffness, (-) lymphadenopathy. CHEST AND RESPIRATORY: (+) bilateral expiratory wheezing; (-) rales, (-) rhonchi, (-) rub; breath sounds equal bilaterally. HEART AND CARDIOVASCULAR: (-) irregularity; (-) murmur, (-) gallop. ABDOMEN AND GI: Soft; (-) tenderness. EXTREMITIES: (-) deformity, (-) edema. NEURO AND PSYCH: Mental status as above; (-) focal findings. Medical Decision Making Medical Decision Making: Time: 01:47 --Duoneb 3 ml INH --Peak flow pre/post On re-evaluation, patient reports no cp, no sob, is speaking in full sentences, breathing easy and unlabored. Patient is stable for d/c. Advised to follow up with primary care physician in 1-2 days without fail. Advised to take medication as prescribed. Return to the emergency room at any time for any new or worsening symptoms. Patient states he fully agrees with and understands discharge instructions. States that he agrees with the plan and disposition. Verbalized and repeated discharge instructions and plan. I have given the patient opportunity to ask any additional questions. Scribe Attestation: Documented by Nidia Parrish, acting as a scribe for Yesenia Zavala PA-C. Provider Scribe Attestation: All medical record entries made by the Scribe were at my direction and personally dictated by me. I have reviewed the chart and agree that the record accurately reflects my personal performance of the history, physical exam, medical decision making, and the department course for this patient. I have also personally directed, reviewed, and agree with the discharge instructions and disposition. - ECG O2 Sat by Pulse Oximetry: 98 (RA) Pulse Ox Interpretation: Normal Disposition - Clinical Impression Clinical Impression: Cough - Patient ED Disposition Is Patient to be Admitted: No Counseled Patient/Family Regarding: Diagnosis, Need For Followup, Rx Given - Disposition Disposition: Routine/Home Disposition Time: 03:30 Condition: IMPROVED Additional Instructions: Thank you for letting us take care of you today. You were treated for cough. The emergency medical care you received today was directed at your acute symptoms. If you were prescribed any medication, please fill it and take as directed. It may take several days for your symptoms to resolve. Return to the Emergency Department if your symptoms worsen, do not improve, or if you have any other problems. Please contact your doctor in 2 days for re-evaluation and follow up. Bring any paperwork you were given at discharge with you along with any medications you are taking to your follow up visit. Our treatment cannot replace ongoing medical care by a primary care provider (PCP) outside of the emergency department. Thank you for allowing the [facility] team to be part of your care today. Prescriptions: Albuterol HFA [Ventolin HFA 90 mcg/actuation (8 g)] 2 puff IH [id number] #1 puff Instructions: Cough, Adult (DC) Forms: [employer] (Maori)
== END 2017-05-18 02:48 | disposition home or self-care (01) ==
LOC: H.ER 00:25
DX: J45.909 Unspecified asthma, uncomplicated (principal); I10 Essential (primary) hypertension

== ENCOUNTER 2017-08-15 01:42 | Emergency (ER) | payer MEDICAID ==
[2017-08-15 01:42] VITALS: BMI 19.5
--- NOTE | 2017-08-15 05:03 | ED PDOC ---
HPI: Back Time Seen by Provider: 08/15/17 02:08 Chief Complaint (Nursing): Rib Injury Past Medical History Vital Signs: Last Vital Signs Temp 98.5 F 08/15/17 01:52 Pulse 89 08/15/17 01:52 Resp 16 08/15/17 01:52 BP 134/76 08/15/17 01:52 Pulse Ox 98 08/15/17 01:52 - Medical History PMH: Asthma, Bronchitis, Fractures (Mandible & foot), HTN, Seizures - Surgical History Surgical History: Appendectomy - Family History Family History: States: Unknown Family Hx, Hypertension - Immunization History Hx Tetanus Toxoid Vaccination: No Hx Influenza Vaccination: No Hx Pneumococcal Vaccination: No - Home Medications Home Medications: Ambulatory Orders Medication Instructions Recorded Albuterol HFA [Ventolin HFA 90 1 puff IH DAILY PRN 05/01/17 mcg/actuation (8 g)] Lisinopril [Zestril] 10 mg PO DAILY #30 tab 05/02/17 Albuterol HFA [Ventolin HFA 90 2 puff IH [id number] #1 puff 05/18/17 mcg/actuation (8 g)] Naproxen [Naprosyn] 500 mg PO BID PRN #10 tab 08/15/17 - Allergies Allergies/Adverse Reactions: Allergies Allergy/AdvReac Type Severity Reaction Status Date / Time No Known Allergies Allergy Verified 05/18/17 00:56 - ECG O2 Sat by Pulse Oximetry: 98 Disposition - Clinical Impression Clinical Impression: Back pain - Patient ED Disposition Is Patient to be Admitted: No - Disposition Referrals: [facility] [Outside] [facility] [Outside] Disposition: Routine/Home Disposition Time: 04:00 Condition: STABLE Additional Instructions: Follow up with [facility] for further evaluation. Return to ED immediately if symptoms worsen. Prescriptions: Naproxen [Naprosyn] 500 mg PO BID PRN #10 tab PRN Reason: Pain Instructions: Upper Back Pain (DC) Forms: [employer] (Cook Islander)
[2017-08-15 06:06] VITALS: BP 148/114; PULSE 90; RESP 18; TEMP 98.1; O2SAT 100
--- NOTE | 2017-08-15 10:14 | RAD ---
HISTORY: back pain COMPARISON: No prior. FINDINGS: BONES: Subtle upper thoracic level scoliosis. Straightened kyphotic curvature appear No fracture or spondylolisthesis identified. Vertebral body disc interspace heights appear within normal limits. No destructive bony lesion identified throughout. DISC SPACES: As above peer SOFT TISSUES: Normal. OTHER FINDINGS: None. IMPRESSION: Straightened thoracic curvature without fracture or spondylolisthesis appreciated.
== END 2017-08-15 06:10 | disposition home or self-care (01) ==
LOC: H.ER 01:42
DX: M54.9 Dorsalgia, unspecified (principal); I10 Essential (primary) hypertension; J45.909 Unspecified asthma, uncomplicated
CPT/HCPCS: 72070; 96372; 99283; J1885

== ENCOUNTER 2017-11-21 16:08 | Emergency (ER) | payer MEDICAID ==
[2017-11-21 16:08] VITALS: BMI 19.5
[2017-11-21 16:14] VITALS: BP 149/98; PULSE 94; RESP 16; TEMP 98; O2SAT 98
== END 2017-11-21 16:25 | disposition left against medical advice (07) ==
LOC: H.ER 16:08
DX: Z02.89 Encounter for other administrative examinations (principal)

== ENCOUNTER → 2017-12-09 | Emergency (ER) | payer MEDICAID ==
[2017-12-09 21:53] VITALS: BMI 19.5
[2017-12-09 22:02] VITALS: TEMP 98.4
[2017-12-09 22:43] VITALS: BP 154/89; PULSE 98; RESP 17; O2SAT 97
--- NOTE | 2017-12-09 23:15 | ED PDOC ---
HPI: Psych/Substance Abuse Time Seen by Provider: 12/09/17 22:10 Chief Complaint (Nursing): Substance Abuse Chief Complaint (Provider): Alcohol abuse History Per: Patient History/Exam Limitations: no limitations Onset/Duration Of Symptoms: Hrs (today) Current Symptoms Are (Timing): Still Present Modifying Factor(s): Alcohol Additional Complaint(s): Dagoberto Calzada is a 47 year old male, with a past history of substance abuse, who was brought to the emergency department by EMS for public intoxication. Patient admits to PCP usage and is requesting discharge. He is well known to provider and staff for multiple visits to ED related to intoxication. Patient has no complaints at this time. PMD: None provided. Past Medical History Reviewed: Historical Data, Nursing Documentation, Vital Signs Vital Signs: Last Vital Signs Temp 98.4 F 12/09/17 21:59 Pulse 98 H 12/09/17 22:42 Resp 17 12/09/17 22:42 BP 154/89 H 12/09/17 22:42 Pulse Ox 97 12/09/17 22:42 - Medical History PMH: Asthma, Bronchitis, Fractures (Mandible & foot), HTN, Seizures - Surgical History Surgical History: Appendectomy - Family History Family History: States: Unknown Family Hx, Hypertension - Social History Alcohol: > 2 Drinks/Day Drugs: Other (PCP) - Immunization History Hx Tetanus Toxoid Vaccination: No Hx Influenza Vaccination: No Hx Pneumococcal Vaccination: No - Home Medications Home Medications: Ambulatory Orders Medication Instructions Recorded Albuterol HFA [Ventolin HFA 90 1 puff IH DAILY PRN 05/01/17 mcg/actuation (8 g)] Lisinopril [Zestril] 10 mg PO DAILY #30 tab 05/02/17 Albuterol HFA [Ventolin HFA 90 2 puff IH [id number] #1 puff 05/18/17 mcg/actuation (8 g)] Naproxen [Naprosyn] 500 mg PO BID PRN #10 tab 08/15/17 - Allergies Allergies/Adverse Reactions: Allergies Allergy/AdvReac Type Severity Reaction Status Date / Time No Known Allergies Allergy Verified 05/18/17 00:56 Review of Systems ROS Statement: Except As Marked, All Systems Reviewed And Found Negative Physical Exam - Reviewed Nursing Documentation Reviewed: Yes Vital Signs Reviewed: Yes - Physical Exam Appears: Positive for: No Acute Distress Head Exam: Positive for: ATRAUMATIC, NORMOCEPHALIC Skin: Positive for: Normal Color, Warm, Dry Eye Exam: Positive for: Normal appearance, EOMI, PERRL Neck: Positive for: Painless ROM Cardiovascular/Chest: Positive for: Regular Rate, Rhythm. Negative for: Murmur Respiratory: Positive for: Normal Breath Sounds. Negative for: Respiratory Distress Gastrointestinal/Abdominal: Positive for: Normal Exam, Soft. Negative for: Tenderness, Guarding, Rebound Back: Positive for: Normal Inspection. Negative for: L CVA Tenderness, R CVA Tenderness Extremity: Positive for: Normal ROM (upper and lower extremities). Negative for: Deformity, Swelling Neurologic/Psych: Positive for: Alert, Oriented - ECG O2 Sat by Pulse Oximetry: 97 (RA) Pulse Ox Interpretation: Normal Medical Decision Making Medical Decision Making: Time: 22:10 Initial Impression: 47 y/o male with PCP use. Initial Plan: --Alcohol serum --Drug screen, urine --Reevaluation 22:35 Upon provider reevaluation patient is feeling better, is medically stable, and requires no further treatment in the ED at this time. Patient will be discharged home. Counseling was provided against usage for PCP. All questions were answered regarding diagnosis. There is agreement to discharge plan. ----- Scribe Attestation: Documented by Da Licona, acting as a scribe for Elton Masters MD. Provider Scribe Attestation: All medical record entries made by the Scribe were at my direction and personally dictated by me. I have reviewed the chart and agree that the record accurately reflects my personal performance of the history, physical exam, medical decision making, and the department course for this patient. I have also personally directed, reviewed, and agree with the discharge instructions and disposition. Disposition - Clinical Impression Clinical Impression: PCP (phencyclidine) abuse - Disposition Disposition: Routine/Home Disposition Time: 22:35 Condition: STABLE Instructions: Drug Abuse Treatment Forms: [facility] (Sierra Leonean)
== END | disposition home or self-care (01) ==
LOC: H.ER 21:53
DX: F16.10 Hallucinogen abuse, uncomplicated (principal); I10 Essential (primary) hypertension

== ENCOUNTER 2017-12-26 02:31 | Emergency (ER) | payer MEDICAID ==
[2017-12-26 02:36] VITALS: PULSE 124; RESP 17; TEMP 98.2; O2SAT 100
--- NOTE | 2017-12-26 02:59 | ED PDOC ---
HPI: Psych/Substance Abuse Time Seen by Provider: 12/26/17 02:38 Chief Complaint (Nursing): Substance Abuse Chief Complaint (Provider): Substance Abuse ED Caveat: Intoxicated History Per: EMS History/Exam Limitations: intoxication Onset/Duration Of Symptoms: Hrs Current Symptoms Are (Timing): Still Present Modifying Factor(s): Alcohol Additional Complaint(s): 65 y/o Marquis Roman with an unknown Past medical history brought in EMS and [place] [employer] for public intoxication. Patient is unwilling to provide any history. PMD: Unknown Past Medical History Reviewed: Historical Data, Nursing Documentation, Vital Signs Vital Signs: Last Vital Signs Temp 98.2 F 12/26/17 02:33 Pulse 124 H 12/26/17 02:33 Resp 17 12/26/17 02:33 BP Pulse Ox 100 12/26/17 02:33 - Medical History PMH: No Chronic Diseases - Surgical History Surgical History: No Surg Hx - Family History Family History: States: Unknown Family Hx - Social History Alcohol: > 2 Drinks/Day - Allergies Allergies/Adverse Reactions: Allergies Allergy/AdvReac Type Severity Reaction Status Date / Time Unobtainable Allergy Verified 12/26/17 02:36 Review of Systems ROS Statement: Except As Marked, All Systems Reviewed And Found Negative Psych: Positive for: Other (EtOH and possible substance abuse) Physical Exam - Reviewed Nursing Documentation Reviewed: Yes Vital Signs Reviewed: Yes - Physical Exam Appears: Positive for: No Acute Distress Head Exam: Positive for: ATRAUMATIC, NORMOCEPHALIC Skin: Positive for: Normal Color, Warm, Dry Eye Exam: Positive for: Normal appearance Neck: Positive for: Normal, Painless ROM Cardiovascular/Chest: Positive for: Regular Rate, Rhythm. Negative for: Murmur Respiratory: Positive for: Normal Breath Sounds. Negative for: Respiratory Distress Gastrointestinal/Abdominal: Positive for: Normal Exam, Soft. Negative for: Tenderness Back: Negative for: L CVA Tenderness, R CVA Tenderness Extremity: Positive for: Normal ROM. Negative for: Pedal Edema, Deformity Neurologic/Psych: Positive for: Gait (Steady), Other (Normal Speech). Negative for: Motor/Sensory Deficits - ECG O2 Sat by Pulse Oximetry: 100 (RA) Pulse Ox Interpretation: Normal Medical Decision Making Medical Decision Making: Time: 024 Impression: 65 y/o male brought in for public intoxication likely secondary to drug abuse Plan: -- Alcohol Serum -- CMP -- Urine Drug Screen -- CBC with Differentials -- Accucheck Time: 034 -- Patient is stable for discharge with a diagnosis of PCP abuse. ____ Scribe Attestation: Documented by Jeannette Anthony, acting as a scribe for Elton Masters MD. Provider Scribe Attestation: All medical record entries made by the Scribe were at my direction and personally dictated by me. I have reviewed the chart and agree that the record accurately reflects my personal performance of the history, physical exam, medical decision making, and the department course for this patient. I have also personally directed, reviewed, and agree with the discharge instructions and disposition. Disposition - Clinical Impression Clinical Impression: PCP (phencyclidine) abuse - Disposition Disposition: Routine/Home Disposition Time: 03:46 Condition: STABLE Instructions: Drug Abuse and Drug Addiction (DC) Forms: [employer] (South Sudanese)
[2017-12-26 04:13] LABS: BASO # 0.1 K/uL (0.0-0.2); BASO % 0.7 % (0.0-2.0); EOS # 0.1 K/uL (0.0-0.7); EOS % 0.6 % (0.0-4.0); HEMOGLOBIN 13.4 g/dL (12.0-18.0); LYMPH # 2.3 K/uL (1.0-4.3); LYMPH % 25.6 % (20.0-40.0); MEAN CELL VOLUME 94.1 fl (80.0-94.0); MEAN CORPUSCULAR HEMOGLOBIN 31.3 pg (27.0-31.0); MEAN CORPUSCULAR HGB CONC 33.2 g/dL (33.0-37.0); MEAN PLATELET VOLUME 8.3 fl (7.2-11.7); MONO # 0.7 K/uL (0.0-0.8); NEUT # 5.7 K/uL (1.8-7.0); NEUT % 65.1 % (50.0-75.0); NRBC % 0.1 % (0.0-0.0); RBC 4.28 Mil/uL (4.40-5.90); RED CELL DISTRIBUTION WIDTH 14.2 % (11.5-14.5); WHITE BLOOD COUNT 8.8 K/uL (4.8-10.8)
[2017-12-26 04:19] LABS: ALB/GLOB RATIO 1.3 (1.0-2.1); ALBUMIN 4.8 g/dL (3.5-5.0); CALCIUM 9.6 mg/dL (8.4-10.2)
== END 2017-12-26 04:00 | disposition home or self-care (01) ==
LOC: MERGE 02:31 → H.ER 02:31
DX: F16.10 Hallucinogen abuse, uncomplicated (principal)

== ENCOUNTER 2018-05-16 12:02 | Emergency (ER) | payer MEDICAID ==
[2018-05-16 12:03] VITALS: BMI 19.5
[2018-05-16 12:17] VITALS: TEMP 99.5
--- NOTE | 2018-05-16 14:00 | ED PDOC ---
HPI: Hypertension/Hypotension Time Seen by Provider: 05/16/18 12:34 Chief Complaint (Nursing): Flu-like Symptoms Chief Complaint (Provider): Palpitations History Per: Patient Additional Complaint(s): 47 y/o female with a PMHx of HTN presents to the ED for evaluation of palpitations since running out of his Hypertensive medications on Thursday. Patient reports of currently feeling very anxious, as he gets nervous whenever he is in an emergency room. Patient states he only wants his HTN at this time. Patient refuses blood work and monitoring and is only requesting a prescription. Otherwise, patient denies chest pain and shortness of breath. PMD: no provider Against Medical Advice - AMA Patient Left Against Medical Advice: The patient declines admission to the hospital and wishes to leave the Emergency Department. This action is against my medical advice. This decision was made with informed refusal. The patient was told that admission to the hospital is necessary. Explanation of the reasons why were discussed. The risks of leaving were explained to the patient and include, but are not limited to, worsening of known or currently unknown conditions, permanent di sability and from undiagnosed or untreated conditions. The patient has the capacity to make this informed decision and understands my explanation of the current medical problem and risks of leaving. The patient voluntarily accepts these risks and signed an AMA form documenting our conversation. The patient was given the opportunity to ask questions and reconsider. The patient was encouraged to return to the Emergency Department at any time for further care. Past Medical History Reviewed: Historical Data, Nursing Documentation, Vital Signs Vital Signs: Last Vital Signs Temp 99.5 F 05/16/18 12:14 Pulse 115 H 05/16/18 13:29 Resp 18 05/16/18 12:14 BP 190/151 H 05/16/18 13:29 Pulse Ox 96 05/16/18 12:14 - Medical History PMH: Asthma, Bronchitis, Fractures (Mandible & foot), HTN (hasnt taken medication for months), Seizures - Surgical History Surgical History: Appendectomy - Family History Family History: States: Unknown Family Hx, Hypertension - Social History Alcohol: < 2 Drinks/Day Drugs: Other (Marijuana) - Immunization History Hx Tetanus Toxoid Vaccination: No Hx Influenza Vaccination: No Hx Pneumococcal Vaccination: No - Home Medications Home Medications: Ambulatory Orders Medication Instructions Recorded Albuterol HFA [Ventolin HFA 90 1 puff IH DAILY PRN 05/01/17 mcg/actuation (8 g)] Albuterol HFA [Ventolin HFA 90 2 puff IH [id number] #1 puff 05/18/17 mcg/actuation (8 g)] Naproxen [Naprosyn] 500 mg PO BID PRN #10 tab 08/15/17 Lisinopril [Zestril] 10 mg PO DAILY #30 tab 05/16/18 - Allergies Allergies/Adverse Reactions: Allergies Allergy/AdvReac Type Severity Reaction Status Date / Time No Known Allergies Allergy Verified 12/28/17 09:07 Review of Systems ROS Statement: Except As Marked, All Systems Reviewed And Found Negative Cardiovascular: Positive for: Palpitations. Negative for: Chest Pain Respiratory: Negative for: Shortness of Breath Psych: Positive for: Anxiety Physical Exam - Reviewed Nursing Documentation Reviewed: Yes Vital Signs Reviewed: Yes - Physical Exam Appears: Positive for: No Acute Distress Head Exam: Positive for: ATRAUMATIC, NORMOCEPHALIC Skin: Positive for: Normal Color, Warm, Dry Eye Exam: Positive for: Normal appearance, EOMI, PERRL Neck: Positive for: Normal, Painless ROM, Supple Cardiovascular/Chest: Positive for: Tachycardia (with regular rhythm) Respiratory: Positive for: Normal Breath Sounds Gastrointestinal/Abdominal: Positive for: Normal Exam, Soft. Negative for: Tenderness Extremity: Positive for: Normal ROM. Negative for: Deformity Neurological/Psych: Positive for: Awake, Alert, Oriented. Negative for: Motor/Sensory Deficits - ECG ECG Rhythm: Positive for: Sinus Tachycardia, Right Bundle Branch Block. Negative for: ST/T Changes Rate: 127 O2 Sat by Pulse Oximetry: 96 (RA) Pulse Ox Interpretation: Normal Medical Decision Making Medical Decision Making: Time: 1334 Impression: HTN, palpitations and substance abuse Plan: -- EKG -- Alcohol serum -- BMP -- Urine Drug Screen -- Troponin I -- CBC with differentials -- Lisinopril 10 mg PO -- High Climber -- Patient refuses labs, further monitoring and wishes to leave. Patient understands all potential risks of signing out Against Medical Advice. Scribe Attestation: Documented by Jeannette Anthony, acting as a scribe for Nancy Husain MD. Provider Scribe Attestation: All medical record entries made by the Scribe were at my direction and personally dictated by me. I have reviewed the chart and agree that the record accurately reflects my personal performance of the history, physical exam, medical decision making, and the department course for this patient. I have also personally directed, reviewed, and agree with the discharge instructions and disposition. Disposition - Clinical Impression Clinical Impression: Left against medical advice, Hypertension, Palpitations - Patient ED Disposition Is Patient to be Admitted: No Counseled Patient/Family Regarding: Studies Performed, Diagnosis, Need For Followup, Rx Given - Disposition Referrals: [facility] [Outside] Disposition: Against Medical Advice Disposition Time: 16:02 Condition: FAIR Additional Instructions: HILARIO MILLIGAN, thank you for letting us take care of you today. Your provider was Nancy Husain MD and you were treated for PALPITATIONS. The emergency medical care you received today was directed at your acute symptoms. If you were prescribed any medication, please fill it and take as directed. It may take several days for your symptoms to resolve. Return to the Emergency Department if your symptoms worsen, do not improve, or if you have any other problems. Please contact your doctor or call one of the physicians/clinics you have been referred to that are listed on the Patient Visit Information form that is included in your discharge packet. Bring any paperwork you were given at discharge with you along with any medications you are taking to your follow up visit. Our treatment cannot replace ongoing medical care by a primary care provider outside of the emergency department. Thank you for allowing the [facility] team to be part of your care today. If you had an X-Ray or CT scan: A Radiologist will review the ED reading if any change in treatment is needed we will contact you. If you had a blood, urine, or wound culture: It will take several days for the results, if any change in treatment is needed we will contact you. If you had an STI test: It will take 48 hours for the results. Please call after 1 week if you have not heard back. Prescriptions: Lisinopril [Zestril] 10 mg PO DAILY #30 tab Instructions: High Blood Pressure in Adults, Palpitations, Leaving Against Medical Advice Forms: [employer] (Maori)
[2018-05-16 14:19] VITALS: BP 179/149; RESP 20
[2018-05-16 14:22] VITALS: O2SAT 96
[2018-05-16 14:47] VITALS: PULSE 127
--- NOTE | 2018-05-16 19:57 | CARD ---
APPROVED REPORT Date of service: 05/16/2018 EKG Measurement Heart [id number] <Conclusion> Sinus tachycardia Possible Left atrial enlargement Left axis deviation Incomplete right bundle branch block Left ventricular hypertrophy Junctional ST depression, probably normal Abnormal ECG
== END 2018-05-16 14:01 | disposition left against medical advice (07) ==
LOC: H.ER 12:02
DX: I10 Essential (primary) hypertension (principal); R00.2 Palpitations

== ENCOUNTER 2018-06-25 13:16 | Emergency (ER) | payer MEDICAID ==
[2018-06-25 13:16] VITALS: BMI 19.5
--- NOTE | 2018-06-25 13:51 | ED PDOC ---
HPI: Chest Pain Time Seen by Provider: 06/25/18 13:33 Chief Complaint (Nursing): Palpitations History Per: Patient Onset/Duration Of Symptoms: Days (1) Current Symptoms Are (Timing): Intermittent Episodes Severity: Mild Associated Symptoms: denies: Dyspnea, Syncope Additional Complaint(s): Intermittent palpitations since last night. Denies chest pain, SOB or dizziness. Seen in ED 05/17 and tx'ed with lisinopril but pt has been noncompliant with meds and diet. Also admits to ETOH and marijuana use. Past Medical History Vital Signs: Last Vital Signs Temp 97.8 F 06/25/18 13:24 Pulse 110 H 06/25/18 13:24 Resp 19 06/25/18 13:24 BP 208/151 H 06/25/18 13:24 Pulse Ox - Medical History PMH: Asthma, Bronchitis, Fractures (Mandible & foot), HTN (hasnt taken medication for months), Seizures - Surgical History Surgical History: Appendectomy - Family History Family History: States: Unknown Family Hx, Hypertension - Immunization History Hx Tetanus Toxoid Vaccination: No Hx Influenza Vaccination: No Hx Pneumococcal Vaccination: No - Home Medications Home Medications: Ambulatory Orders Medication Instructions Recorded Albuterol HFA [Ventolin HFA 90 1 puff IH DAILY PRN 05/01/17 mcg/actuation (8 g)] Albuterol HFA [Ventolin HFA 90 2 puff IH [id number] #1 puff 05/18/17 mcg/actuation (8 g)] Naproxen [Naprosyn] 500 mg PO BID PRN #10 tab 08/15/17 Lisinopril [Zestril] 10 mg PO DAILY #30 tab 05/16/18 - Allergies Allergies/Adverse Reactions: Allergies Allergy/AdvReac Type Severity Reaction Status Date / Time No Known Allergies Allergy Verified 12/28/17 09:07 Review of Systems ROS Statement: Except As Marked, All Systems Reviewed And Found Negative Cardiovascular: Positive for: Palpitations. Negative for: Chest Pain Respiratory: Negative for: Shortness of Breath Neurological: Negative for: Weakness, Numbness, Dizziness Physical Exam - Reviewed Nursing Documentation Reviewed: Yes Vital Signs Reviewed: Yes - Physical Exam Appears: Positive for: Non-toxic, No Acute Distress Head Exam: Positive for: ATRAUMATIC, NORMAL INSPECTION, NORMOCEPHALIC Skin: Positive for: Normal Color, Warm, DRY Eye Exam: Positive for: EOMI, Normal appearance, PERRL ENT: Positive for: Normal ENT Inspection Neck: Positive for: Normal, Painless ROM Cardiovascular/Chest: Positive for: Regular Rate, Rhythm Respiratory: Positive for: CNT, Normal Breath Sounds Gastrointestinal/Abdominal: Positive for: Normal Exam, Soft Back: Positive for: Normal Inspection Extremity: Positive for: Normal ROM Neurological/Psych: Positive for: Awake, Alert, Normal Tone. Negative for: Motor/Sensory Deficits - Laboratory Results Result Diagrams: 06/25/18 14:30 06/25/18 14:30 Disposition - Clinical Impression Clinical Impression: Substance abuse, Hypertension - Patient ED Disposition Is Patient to be Admitted: Transfer of Care - Disposition Disposition: Transfer of Care Disposition Time: 15:19 Condition: FAIR Forms: [employer] (Burmese) Patient Signed Over To: Svitlana Escobar (Pending BP reeval and sobriety)
[2018-06-25 14:44] LABS: BASO % 0.9 % (0.0-2.0); EOS % 0.1 % (0.0-4.0); HEMOGLOBIN 12.6 g/dL (12.0-18.0); LYMPH # 1.5 K/uL (1.0-4.3); LYMPH % 29.4 % (20.0-40.0); MEAN CELL VOLUME 95.1 fl (80.0-94.0); MEAN CORPUSCULAR HEMOGLOBIN 31.5 pg (27.0-31.0); MEAN CORPUSCULAR HGB CONC 33.1 g/dL (33.0-37.0); MONO # 0.3 K/uL (0.0-0.8); MONO % 6.2 % (0.0-10.0); NEUT # 3.3 K/uL (1.8-7.0); NEUT % 63.4 % (50.0-75.0); NRBC % 0.1 % (0.0-0.0); RBC 3.99 Mil/uL (4.40-5.90); RED CELL DISTRIBUTION WIDTH 14.7 % (11.5-14.5); WHITE BLOOD COUNT 5.2 K/uL (4.8-10.8)
[2018-06-25 14:46] LABS: ALB/GLOB RATIO 1.6 (1.0-2.1); ALT/SGPT 19 U/L (21-72); AST/SGOT 41 U/L (17-59); BLOOD UREA NITROGEN 27 mg/dl (9-20); CALCIUM 9.4 mg/dL (8.4-10.2); GFR NON-AFRICAN AMERICAN 51
[2018-06-25 14:57] VITALS: RESP 18
[2018-06-25 15:01] LABS: BARBITURATES, UR NEGATIVE (NEGATIVE); BENZODIAZEPINES, UR NEGATIVE (NEGATIVE); OPIATES, UR NEGATIVE (NEGATIVE); PHENCYCLIDINE, UR POSITIVE (NEGATIVE)
--- NOTE | 2018-06-25 15:39 | ED PDOC ---
- Laboratory Results Result Diagrams: 06/25/18 14:30 06/25/18 14:30 Lab Results: Troponin I < 0.0120 ng/mL (0.00-0.120) 06/25/18 14:30 Total Bilirubin 0.5 mg/dl (0.2-1.3) 06/25/18 14:30 AST 41 U/L (17-59) 06/25/18 14:30 ALT 19 U/L (21-72) L D 06/25/18 14:30 Alkaline Phosphatase 68 U/L (38-126) 06/25/18 14:30 Total Protein 8.2 G/DL (6.3-8.2) 06/25/18 14:30 Albumin 5.0 g/dL (3.5-5.0) 06/25/18 14:30 Globulin 3.2 gm/dL (2.2-3.9) 06/25/18 14:30 Albumin/Globulin Ratio 1.6 (1.0-2.1) 06/25/18 14:30 - ECG O2 Sat by Pulse Oximetry: 100 - Progress ED Course And Treament: 320p Rec'd endorsement from Dr Min. Presented with polysubstance abuse and htn. H/o noncompliance htn meds. Pending sobriety and BP improvement. Labs reviewed and demonstrate elevate BUN, elevated BAL, and PCP in UDS. 1530 BP normalized. Pt alert and awake. No signs of withdrawal. Disposition Counseled Patient/Family Regarding: Diagnosis, Need For Followup (and need for lifestyle changes, addiction resources provided), Rx Given - Clinical Impression Clinical Impression: Substance abuse, Hypertension - POA Present On Arrival: None - Disposition Referrals: [facility] [Outside] Disposition: Routine/Home Disposition Time: 15:38 Condition: IMPROVED Prescriptions: amLODIPine [Norvasc] 5 mg PO DAILY #30 tab Lisinopril [Zestril] 10 mg PO DAILY #30 tab Instructions: High Blood Pressure (DC), Polysubstance Abuse (DC)
[2018-06-25 20:52] VITALS: BP 154/108; PULSE 92; TEMP 98.3; O2SAT 99
== END 2018-06-25 16:10 | disposition home or self-care (01) ==
LOC: H.ER 13:16
DX: F19.10 Other psychoactive substance abuse, uncomplicated (principal); I10 Essential (primary) hypertension; J45.909 Unspecified asthma, uncomplicated; Z91.14 Patient's other noncompliance with medication regimen